=== PATIENT | female | born 1990 | race Caucasian/White ===

== ENCOUNTER 2018-09-28 09:24 | Emergency (ER) | payer BC ==
--- OUTSIDE RECORDS SUMMARY | 2018-09-28 09:29 | XMS REPORT | Continuity of Care Document ---
:1990 External Reference #:[id number] Author Name Yisel Moise Care Team Providers Name Role Phone Santos Parada M.D. Primary Care Physician Unavailable Payers Type Date Identification Numbers Payment Provider Subscriber Effective: Policy Number: [id number] Anthony Harvey 2014 Medicaid Expires: 2017 PayID: [id number] [address] [place] [address] Expires: 2014 Policy Number: Medicaid/[employer] Krishna Harvey [id number] Group Name: 1 1 [address] PayID: [id number] [place] [address] Policy Number: [id number] Jonathan BC Krishna Harvey Group Name: Bernard DOWLING 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 Cigarette Use Negative For current cigarette smoker ETOH Use Negative For Currently consumes alcohol Recreational Drug Use Denies Drug Use Tobacco Use Start: Unknown Patient is a current smoker, smokes every day Smoking Status Reviewed: 03/18/18 Patient is a current smoker, smokes every day Enjoy Exercising Enjoys exercising But says her job and kids are exercise Allergies, Adverse Reactions, Alerts Date Description Reaction Status Severity Comments 10/13/2011 Penicillins Active blisters/hives 05/19/2016 Bee Sting Active swelling of the throat and face Medications Medication Date Status Form Strength Qnty SIG Indications Ordering Provider Ergocalciferol 08/27 Active Capsules 59544Ronp 8caps one by mouth M79.10 twice each Huy Mina, week for 4 [employer] SOLUTION ANALYST-C weeks Vitamin B-12 08/27 Active Tablets 2500mcg 90tab 1 by mouth E53.8 Sub s every day for Huy Mina, deficiency [employer]UTION [employer]LYST-[employer] Zoloft 04/26 Active Tablets 50mg 30tab 1 by mouth F43.23 Emilee /2018 s every day Efren, PICK UP Hydroxyzine HCL 04/26 Active Tablets 25mg 30tab take 1 tablet F43.23 s by mouth Shortle, every 6 hours PICK UP as needed for anxiety Ventolin HFA 11/30 Active Aerosol 108(90Bas 8gm 2 puff J06.9 e) inhalation Shortle, mcg/Act every 4 to 6 PICK UP hours as needed Tizanidine HCL 05/08 Active Tablets 2mg 30tab take 1 tablet M54.17 s by mouth Huy Mina, three times [employer] SOLUTION ANALYST-C daily as needed for muscle spasm Apri 02/13 Active Tablets 0.15-30mg 168ta 1 by mouth -mcg bs every day Huy Mina, [employer]UTION ANALYST-C Lexapro 03/18 Hx Tablets 10mg 30tab 1/2 tab by F43.23 s mouth daily Huy Mina, - for one week. [employer] SOLUTION ANALYST-C 04/27 then 1 tab mouth daily Mucinex 11/30 Hx Tablets 600mg 30tab Take 1 tablet J06.9 ER 12HR s by mouth Shortle, - every 12 PICK UP 03/18 hours needed for chest congestion Clarithromycin 11/16 Hx Tablets 500mg 20tab 1 by mouth J01.90 s twice a day Huy Mina, - for sinusitis [employer] SOLUTION ANALYST-C 11/26 Doxycycline 09/11 Hx Capsules 100mg 28cap 1 by mouth N76.0 Hycl s twice a day Huy Mina, - for 14 days [employer] SOLUTION ANALYST-C 09/21 Tessalkaleigh Perles 09/11 Hx Capsules 100mg 45cap take 1 J20.9 Alex s capsule by Shaila - mouth 3 times , 03/18 per day needed for cough Meloxicam 05/08 Hx Tablets 15mg 30tab 1 by mouth M54.17 s daily for Huy Mina, - pain, take [employer] SOLUTION ANALYST-C 03/18 with food Gabapentin 05/08 Hx Capsules 300mg 60cap take one M54.17 s capsule by Huy Mina, - mouth bid For [employer]UTION ANALYST-C 09/11 Nerve Pain Clarithromycin 02/13 Hx Tablets 500mg 20tab 1 by mouth J01.90 s twice a day Huy Mina, - for sinusitis [employer] SOLUTION ANALYST-C 02/23 Proair HFA 02/13 Hx Aerosol 108(90Bas 8.5un inhale two J01.90 e) its puffs by Huy Mina, - mcg/Act mouth every 4 [employer]UTION ANALYST-C 11/16 hours needed for shortness of breath , cough or wheeze Ergocalciferol 02/13 Hx Capsules 24473Mity 8caps 1 by mouth twice weekly Huy Mina, - for one month [employer] SOLUTION ANALYST-C 03/15 05/23 Hx Tablets 14-0.4mg 30tab 1 by mouth Dolores Gray s every day Diya, - [employer] SOLUTION ANALYST-C 02/13 03/24 Hx Tablets 0.8mg 30tab 1 po qd Santos Vitamins Karen Epps M.D. 05/23 Amoxicillin/Clav 10/13 Hx Tablets 875-125mg 20tab 1 po bid for 465.9 anat s 10 days for Huy Mina, Potassium - infection [employer] SOLUTION ANALYST-C 10/13 Apri 10/13 Hx Tablets 0.15-30mg 1mont 1 po qd V25.09 -mcg h Huy Mina, - BUSINESS SOLUTION ANALYST-C 03/24 Ciprofloxacin 02/27 Hx Tablets 500mg 20tab 1 po bid for 465.9 Shawnti HCL s infection Huy Mina, - [employer] SOLUTION ANALYST-C 10/22 Percocet 02/02 Hx Tablets 5-325mg 40For 1-2 tabs po 634.82 ty q6hr prn pain Huy Leopoldo, - BUSINESS SOLUTION ANALYST-C 03/17 Zofran Odt 02/02 Hx Tablets 4mg 20tab disolve one 634.82 Dispers s tab in mouth Huy Mina, - every 6-8 [employer]UTION ANALYST-C 03/17 hours prn nausea And 12/22 Hx Tablets 30tab one vitamin V22.0 [facility] Iron s daily Huy Mina, - BUSINESS SOLUTION ANALYST-C 03/17 Return To Work 12/22 Hx may return to V22.0 work, no Huy Mina, - restrictions [employer] SOLUTION ANALYST-C 03/17 Excuse For Work 11/17 Hx Currently unable to Parada, - work due to M.D. 12/27 medical illness through 12/17/08. Naprosyn 02/28 Hx Tablets 500mg 60tab one pill po 719.43 s bid for pain Huy Mina, - BUSINESS SOLUTION ANALYST-C 03/09 Cock Up Wrist 02/28 Hx 1Spli left wrist 719.43 wnti Splint nt splint Huy Mina, - BUSINESS SOLUTION ANALYST-C 03/09 Zyprexa 11/08 Hx Tablets 5mg 30tab 1 qd Karen Epps M.D. 11/17 Sertraline HCL 08/24 Hx Tablets 100mg 30tab 1 PO qam, 08/18 Karen Solorzano M.D. 03/17 No Work 07/15 Hx seen here [employer]07/15 for Lessinger - acute , M.D. 11/08 problems, needed to be off work through 07/22. ok to return to work 07/23. Sertraline HCL 07/07 Hx Tablets 50mg 45tab 1 08/18 po qd Karen Epps M.D. 08/24 Sertraline 04/06 Hx Tablets 50mg 45tab 1 08/18 qd Karen Epps M.D. 07/07 Benzaclin 07/04 Hx Gel 1%;5 % 25g apply bid 706.1 Madan Michel /2004 after washing aPco, - and drying M.DSuzie 04/06 face. /2006 Air Cast For 07/04 Hx 0 1unit best fit, 719.87 Madan Michel Right Ankle /2004 s Karen Sims M.D. 04/06 Risperdal 03/15 Hx Tablets 0.25mg 30tab 1 po qhs 311 Karen Arreola M.D. 04/06 Prozac 10/22 Hx Capsules 20mg 30cap one qd 311 Karen Arreola M.D. 04/06 Ilotycin 06/05 Hx 1Tube use as Malena Ophthalmic /2002 directed qid Carmen Rios, 04/06 [facility] /2006 Keflex 06/05 Hx Tablets 500mg 20tab one po bid Malena /2002 s for 10 days Carmen Rios, 10/22 [facility].N.P.C[facility] /2003 Garamycin 03/31 Hx 3mg/ml 5ml 2 Drops Every 372.30 Kyra Opthalmic Drops /2002 Hour The [employer] - First Day Fredi, 06/05 Then 2 M.DSuzie /2002 Drops Every Four Hours Hydrocodone-Acet Hx Tablets 5-325mg 1 tablet by Unknown aminophen /0000 mouth every - 4-6 hours as 03/18 needed for /2018 back pain. Medications Administered in Office Medication Date Status Form Strength Qnty SIG Indications Ordering Provider TB,Intradermal Administered Injection Lab and (PPD, Mantoux) 018 Office Services Rocephin Administered Injection Elio Son (Ceftriaxone) 018 Storm, Per 250MG [employer] SOLUTION ANALYST-C TB,Intradermal Administered Injection Santos Parada (PPD, Mantoux) 008 Nelia.DSuzie TB,Intradermal Administered Injection Dolores (PPD, Mantoux) 992 Asia Zhu Immunizations CPT Code Status Date Vaccine Lot # [id number] Given 06/01/2018 Influenza Virus Vaccine, Quadrivalent, 3 Yr > [id number] Quad, Preserv Free 53801 Given 06/23/2016 Influenza Virus Vaccine, Quadrivalent, 3 Yr > [id number] Quad, Preserv Free 16606 Given 02/06/2015 Tdap (Adacel) 94380 Given 03/09/2008 Menactra (meningococcal conjugate vaccine) [id number] 91719 Given 03/09/2008 Tdap (Adacel) [id number] 52022 Given 12/16/2001 Hep B Adol- 10 mcg 2 DS 11-15 Yrs (Recombivax)VF 37990 Given 09/01/2001 Hep B Adol- 10 mcg 2 DS 11-15 Yrs (Recombivax)[facility] 73074 Given 02/04/1995 Opv (Poliovirus,Oral) 51133 Given 02/04/1995 MMR (Measles,Mumps,Rubella) 52371 Given 02/04/1995 DPT 21730 Given 07/18/1991 DPT 56470 Given 03/21/1991 Opv (Poliovirus,Oral) 70693 Given 03/21/1991 MMR (Measles,Mumps,Rubella) 30948 Given 03/21/1991 Hib (Hemophilus Influenza B) (Acthib) 24771 Given 08/04/1990 Hib (Hemophilus Influenza B) (Acthib) 63380 Given 04/21/1990 DPT 02621 Given 02/26/1990 Opv (Poliovirus,Oral) 28901 Given 02/26/1990 DPT 98931 Given 1989 Opv (Poliovirus,Oral) 65099 Given 1989 DPT Vital Signs Date Vital Result Comment 08/27/2018 3:56pm Weight 122.00 lb Weight 55.339 kg BP Systolic 90 mmHg BP Diastolic 60 mmHg Heart Rate 76 /min Body Temperature 97.5 F Respiratory Rate 16 /min 06/01/2018 9:50am Weight 120.00 lb Weight 54.432 kg BP Systolic 102 mmHg BP Diastolic 64 mmHg Heart Rate 66 /min Body Temperature 97.9 F Respiratory Rate 16 /min O2 % BldC Oximetry 97 % 04/26/2018 2:54pm Weight 119.00 lb Weight 53.978 kg BP Systolic 118 mmHg BP Diastolic 68 mmHg Heart Rate 66 /min Body Temperature 98.2 F Respiratory Rate 16 /min Height 62.5 inches 5'2.50" BMI (Body Mass Index) 21.4 kg/m2 O2 % BldC Oximetry 98 % 04/12/2018 11:19am Weight 116.00 lb Weight 52.618 kg BP Systolic 98 mmHg BP Diastolic 62 mmHg Heart Rate 68 /min Body Temperature 97.8 F Respiratory Rate 16 /min O2 % BldC Oximetry 98 % 03/18/2018 10:02am Weight 114.00 lb Weight 51.710 kg BP Systolic 94 mmHg BP Diastolic 62 mmHg Heart Rate 64 /min Body Temperature 98.0 F Respiratory Rate 16 /min Height 62.5 inches 5'2.50" BMI (Body Mass Index) 20.5 kg/m2 O2 % BldC Oximetry 100 % 11/30/2017 4:30pm Weight 120.00 lb Weight 54.432 kg BP Systolic 108 mmHg BP Diastolic 62 mmHg Heart Rate 72 /min Body Temperature 98.1 F Respiratory Rate 20 /min O2 % BldC Oximetry 98 % 11/16/2017 11:22am Weight 118.00 lb Weight 53.525 kg BP Systolic 90 mmHg BP Diastolic 58 mmHg Heart Rate 68 /min Body Temperature 97.9 F Respiratory Rate 16 /min O2 % BldC Oximetry 99 % 09/11/2017 2:49pm Weight 119.00 lb Weight 53.978 kg BP Systolic 90 mmHg BP Diastolic 62 mmHg Heart Rate 88 /min Body Temperature 97.3 F Respiratory Rate 16 /min O2 % BldC Oximetry 98 % 09/11/2016 5:07pm Weight 120.00 lb Weight 54.432 kg BP Systolic 90 mmHg BP Diastolic 60 mmHg Heart Rate 96 /min Body Temperature 98.2 F Respiratory Rate 16 /min O2 % BldC Oximetry 99 % 06/23/2016 3:12pm Weight 120.00 lb Weight 54.432 kg BP Systolic 94 mmHg BP Diastolic 60 mmHg Heart Rate 60 /min Body Temperature 98.9 F Respiratory Rate 14 /min 05/19/2016 2:45pm Weight 122.00 lb Weight 55.339 kg BP Systolic 90 mmHg BP Diastolic 63 mmHg Heart Rate 60 /min 05/08/2016 11:18am Weight 123.00 lb Weight 55.793 kg BP Systolic 110 mmHg BP Diastolic 80 mmHg Heart Rate 76 /min Body Temperature 98.9 F Respiratory Rate 16 /min 02/14/2016 2:15pm Weight 120.00 lb Weight 54.432 kg BP Systolic 108 mmHg BP Diastolic 68 mmHg Heart Rate 75 /min Body Temperature 99.7 F Height 62 inches 5'2" BMI (Body Mass Index) 21.9 kg/m2 O2 % BldC Oximetry 98 % 05/23/2014 8:53am Weight 114.00 lb Weight 51.710 kg BP Systolic 106 mmHg BP Diastolic 68 mmHg Heart Rate 88 /min Height 62.5 inches 5'2.50" BMI (Body Mass Index) 20.5 kg/m2 04/06/2012 3:52pm Weight 111.00 lb Weight 50.350 kg BP Systolic 90 mmHg BP Diastolic 50 mmHg Heart Rate 76 /min 03/24/2012 4:02pm Weight 112.00 lb Weight 50.803 kg BP Systolic 90 mmHg BP Diastolic 60 mmHg Heart Rate 88 /min 10/13/2011 10:53am Weight 123.00 lb Weight 55.793 kg BP Systolic 90 mmHg BP Diastolic 58 mmHg Heart Rate 76 /min Body Temperature 97.9 F O2 % BldC Oximetry 98 % AT Room Air 02/07/2009 2:25pm Weight 124.00 lb Weight 56.246 kg BP Systolic 105 mmHg BP Diastolic 62 mmHg Heart Rate 72 /min Body Temperature 97.7 F Respiratory Rate 18 /min 02/02/2009 2:30pm Weight 120.00 lb Weight 54.432 kg BP Systolic 80 mmHg BP Diastolic 50 mmHg Heart Rate 84 /min 01/17/2009 12:07pm Weight 122.00 lb Weight 55.339 kg BP Systolic 84 mmHg BP Diastolic 50 mmHg Heart Rate 88 /min Body Temperature 97.0 F 12/27/2008 10:50am Weight 123.00 lb Weight 55.793 kg BP Systolic 90 mmHg BP Diastolic 60 mmHg Heart Rate 76 /min Body Temperature 98.0 F 12/22/2008 4:05pm Weight 122.00 lb Weight 55.339 kg BP Systolic 110 mmHg BP Diastolic 70 mmHg Heart Rate 88 /min Body Temperature 98.5 F 12/05/2008 12:02pm Weight 120.00 lb Weight 54.432 kg BP Systolic 108 mmHg BP Diastolic 60 mmHg Heart Rate 68 /min 11/17/2008 11:17am Weight 122.00 lb Weight 55.339 kg BP Systolic 82 mmHg BP Diastolic 58 mmHg Heart Rate 68 /min 03/09/2008 2:26pm Weight 115.00 lb Weight 52.164 kg BP Systolic 100 mmHg BP Diastolic 60 mmHg Heart Rate 60 /min Weight Percentile 03/01/2008 11:38am Weight 115.00 lb Weight 52.164 kg BP Systolic 100 mmHg BP Diastolic 50 mmHg Heart Rate 64 /min Weight Percentile 02/29/2008 11:36am Weight 116.00 lb Weight 52.618 kg BP Systolic 108 mmHg BP Diastolic 68 mmHg Heart Rate 80 /min Body Temperature 98.1 F Weight Percentile 12/21/2007 4:04pm Weight 116.00 lb Weight 52.618 kg BP Systolic 94 mmHg BP Diastolic 60 mmHg Heart Rate 76 /min Weight Percentile 3311/09/2007 4:01pm Weight 121.00 lb Weight 54.886 kg BP Systolic 88 mmHg BP Diastolic 58 mmHg Heart Rate 80 /min Weight Percentile 4407/15/2007 2:36pm Weight 114.50 lb Weight 51.937 kg BP Systolic 80 mmHg BP Diastolic 50 mmHg Heart Rate 76 /min Weight Percentile 3207/07/2007 3:35pm Weight 117.00 lb Weight 53.071 kg BP Systolic 90 mmHg BP Diastolic 50 mmHg Heart Rate 84 /min Weight Percentile 3704/06/2007 1:17pm Weight 116.00 lb Weight 52.618 kg BP Systolic 110 mmHg BP Diastolic 60 mmHg Heart Rate 80 /min Respiratory Rate 18 /min Weight Percentile 3607/04/2005 1:25pm Weight 112.00 lb Weight 50.803 kg BP Systolic 110 mmHg BP Diastolic 70 mmHg Weight Percentile 3804/25/2005 5:20pm Weight 113.00 lb Weight 51.257 kg BP Systolic 100 mmHg BP Diastolic 60 mmHg Body Temperature 97.8 F Weight Percentile 4211/01/2004 4:12pm Weight 114.00 lb Weight 51.710 kg BP Systolic 90 mmHg BP Diastolic 60 mmHg Body Temperature 97.2 F Respiratory Rate 18 /min Weight Percentile 4810/09/2004 10:05am Weight 116.00 lb Weight 52.618 kg BP Systolic 110 mmHg BP Diastolic 60 mmHg Weight Percentile 5303/27/2004 9:28am Weight 112.00 lb Weight 50.803 kg BP Systolic 110 mmHg BP Diastolic 70 mmHg Weight Percentile 5103/15/2004 8:04am Weight 112.00 lb Weight 50.803 kg BP Systolic 86 mmHg BP Diastolic 51 mmHg Heart Rate 93 /min Weight Percentile 51st 10/23/2003 9:34am Weight 104.00 lb Weight 47.174 kg Height 61 inches Height Percentile 20 % Weight Percentile 40th BMI (Body Mass Index) 19.6 kg/m2 06/08/2003 9:07am Weight 105.00 lb Weight 47.628 kg Body Temperature 97.0 F Weight Percentile 48th 06/05/2003 2:59pm Weight 105.00 lb Weight 47.628 kg Body Temperature 99.3 F Weight Percentile 48th 02/21/2003 3:30pm Weight 103.00 lb Weight 46.721 kg BP Systolic 106 mmHg BP Diastolic 60 mmHg Heart Rate 76 /min Height 61.25 inches Height Percentile 34 % Weight Percentile 48th BMI (Body Mass Index) 19.3 kg/m2 Right Visual Acuity Distance 20/25 Left Visual Acuity Distance 20/25 03/31/2002 3:51pm Weight 91.00 lb Body Temperature 98.5 F Weight Percentile 47th Right Visual Acuity Distance 20/25 Left Visual Acuity Distance 20/40 01/11/2002 4:59pm Weight 87.50 lb Weight Percentile 39th 11/29/2001 4:28pm Weight 87.00 lb BP Systolic 92 mmHg BP Diastolic 60 mmHg Height 58 inches Height Percentile 31 % Weight Percentile 38th BMI (Body Mass Index) 18.2 kg/m2 Results Test Date Facility Test Result H/L Range Note CBC Auto Diff 06/01/2018 [facility] White Blood 5.5 10^3/uL N 3.5-10.8 [phone] Count Red Blood Count 4.69 10^6/uL N 4.00-5.40 Hemoglobin 13.8 g/dL N 12.0-16.0 Hematocrit 41 % N 35-47 Mean Corpuscular Volume 88 fL N 80-97 Mean Corpuscular Hemoglobin 29 pg N 27-31 Mean Corpuscular HGB Conc 33 g/dL N 31-36 Red Cell Distribution Width 14 % N 10.5-15 Platelet Count 304 10^3/uL N 150-450 Mean Platelet Volume 9.1 um3 N 7.4-10.4 Abs Neutrophils 2.0 10^3/uL N 1.5-7.7 Abs Lymphocytes 2.9 10^3/uL N 1.0-4.8 Abs Monocytes 0.4 10^3/uL N 0-0.8 Abs Eosinophils 0.1 10^3/uL N 0-0.6 Abs Basophils 0.1 10^3/uL N 0-0.2 Abs Nucleated RBC 0 10^3/uL Granulocyte % 36.0 % Low 38-83 Lymphocyte % 53.1 % High 25-47 Monocyte % 7.4 % High 0-7 Eosinophil % 2.6 % N 0-6 Basophil % 0.9 % N 0-2 Nucleated Red Blood Cells % 0.1 Laboratory test 06/01/2018 [facility] Vitamin D 27.1 ng/mL N 20-50 1 finding [phone] Total 25(Oh) Vitamin B12 194 pg/mL N 180-914 2 Laboratory test 03/18/2018 [facility] Cytology SEE RESULT 3 finding [phone] BELOW Laboratory test 09/11/2017 [facility] Gardnerella/ Yeas SEE RESULT 4 finding [phone] t: Vaginal Dna BELOW Urine DIP 09/11/2017 [facility] Leukocytes neg Neg (607)- - Urine Nitrites neg Neg Urobilinogen norm Norm Total Protein, Urine neg Neg Urine pH 5 5-6 Urine Blood trace Neg Specific Bond 1.015 1.01-1.02 Urine Ketones neg Neg Urine Bilirubin neg Neg Urine Glucose norm Norm GC/Chlamydia 09/11/2017 [facility] Chlamydia Negative Negative Amplified Rna [phone] trachomatis Rna Neisseria gonorrhoeae (GC) Rna Negative Negative Laboratory test 09/11/2017 [facility] Trichomonas Negative Negative 5 finding [phone] Vaginalis Rna Laboratory test 09/11/2017 [facility] House [facility] HCG DIP Test neg Neg finding (532)- - CBC Auto Diff 05/07/2016 [facility] White Blood 8.0 10^3/uL N 3.5-10.8 [phone] Count Red Blood Count 4.87 10^6/uL N 4.0-5.4 Hemoglobin 13.9 g/dL N 12.0-16.0 Hematocrit 42 % N 35-47 Mean Corpuscular Volume 86 fL N 80-97 Mean Corpuscular Hemoglobin 28 pg N 27-31 Mean Corpuscular HGB Conc 33 g/dL N 31-36 Red Cell Distribution Width 13 % N 10.5-15 Platelet Count 308 10^3/uL N 150-450 Mean Platelet Volume 10 um3 N 7.4-10.4 Abs Neutrophils 3.8 10^3/uL N 1.5-7.7 Abs Lymphocytes 3.5 10^3/uL N 1.0-4.8 Abs Monocytes 0.5 10^3/uL N 0-0.8 Abs Eosinophils 0.1 10^3/uL N 0-0.6 Abs Basophils 0.1 10^3/uL N 0-0.2 Abs Nucleated RBC 0 10^3/uL N Granulocyte % 47.3 % N 38-83 Lymphocyte % 44.5 % N 25-47 Monocyte % 5.9 % N 1-9 Eosinophil % 1.2 % N 0-6 Basophil % 1.1 % N 0-2 Nucleated Red Blood Cells % 0 N Comp Metabolic Panel 05/07/2016 [facility] Sodium 138 mmol/L N 133-145 [phone] Potassium 3.8 mmol/L N 3.5-5.0 Chloride 106 mmol/L N 101-111 Co2 Carbon Dioxide 27 mmol/L N 22-32 Anion Gap 5 mmol/L N 2-11 Glucose 87 mg/dL N 70-100 Blood Urea Nitrogen 22 mg/dL N 6-24 Creatinine 0.92 mg/dL N 0.51-0.95 BUN/Creatinine Ratio 23.9 High 8-20 Calcium 9.5 mg/dL N 8.6-10.3 Total Protein 7.1 g/dL N 6.4-8.9 Albumin 3.9 g/dL N 3.2-5.2 Globulin 3.2 g/dL N 2-4 Albumin/Globulin Ratio 1.2 N 1-3 Total Bilirubin 0.40 mg/dL N 0.2-1.0 Alkaline Phosphatase 34 U/L N 34-104 Alt 7 U/L N 7-52 Ast 11 U/L Low 13-39 Egfr Non- 73.8 N >60 Egfr 94.9 N >60 6 Laboratory test 05/07/2016 [facility] C Reactive < 1.00 N < 5.00 7 finding [phone] Protein mg/L HCG < 0.60 mIU/mL N 8 Urinalysis Profile 05/07/2016 [facility] Urine Color Yellow N [phone] Urine Appearance Clear N Urine Specific Bond 1.025 N 1.010-1.030 Urine pH 5.0 N 5-9 Urine Urobilinogen Negative N Negative Urine Ketones Negative N Negative Urine Protein Negative N Negative Urine Leukocytes Negative N Negative Urine Blood Negative N Negative Urine Nitrite Negative N Negative Urine Bilirubin Negative N Negative Urine Glucose Negative N Negative Laboratory test 02/14/2016 [facility] Cytology SEE RESULT 9 finding [phone] BELOW CBC Auto Diff 02/14/2016 [facility] White Blood 7.9 10^3/uL N 3.5-10 [phone] Count .8 Red Blood Count 4.50 10^6/uL N 4.0-5.4 Hemoglobin 12.8 g/dL N 12.0-16.0 Hematocrit 38 % N 35-47 Mean Corpuscular Volume 85 fL N 80-97 Mean Corpuscular Hemoglobin 29 pg N 27-31 Mean Corpuscular HGB Conc 34 g/dL N 31-36 Red Cell Distribution Width 13 % N 10.5-15 Platelet Count 327 10^3/uL N 150-450 Mean Platelet Volume 9 um3 N 7.4-10.4 Abs Neutrophils 4.0 10^3/uL N 1.5-7.7 Abs Lymphocytes 3.3 10^3/uL N 1.0-4.8 Abs Monocytes 0.5 10^3/uL N 0-0.8 Abs Eosinophils 0.1 10^3/uL N 0-0.6 Abs Basophils 0 10^3/uL N 0-0.2 Abs Nucleated RBC 0 10^3/uL N Granulocyte % 50.2 % N 38-83 Lymphocyte % 42.2 % N 25-47 Monocyte % 5.9 % N 1-9 Eosinophil % 1.3 % N 0-6 Basophil % 0.4 % N 0-2 Nucleated Red Blood Cells % 0 N Lipid Profile 02/14/2016 [facility] Triglycerides 57 mg/dL N 10 (Trig/Chol/HDL) [phone] Cholesterol 156 mg/dL N 11 HDL Cholesterol 41.1 mg/dL N 12 LDL Cholesterol 104 mg/dL N 13 Laboratory test 02/14/2016 [facility] TSH (Thyroid 1.70 ?IU/mL N 0.34-5.60 14 finding [phone] Stim Horm) Vitamin D Total 25(Oh) 26.6 ng/mL Low 30-50 15 Laboratory test 02/07/2016 [facility] Rapid Strep Negative N Negative 16 finding [phone] Molecular Laboratory test 05/23/2014 [facility] HCG DIP Test POS Neg finding (607)- - Laboratory test 03/24/2012 [facility] HCG DIP Test POS Neg finding (607)- - Laboratory test 10/13/2011 [facility] HCG DIP Test NEG Neg finding (607)- - Cytology 02/13/2009 [facility] Cytology 17 [phone] ---- <SEE NOTE> CBC With Manual 02/02/2009 [facility] White Blood 6.2 CUMM 4.8-10.8 Diff [phone] Count Red Cell Count 3.47 CUMM Low 4.2-5.4 Hemoglobin 10.7 g/dL Low 12.0-16.0 Hematocrit 31 % Low 35-47 Mean Corpuscular Volume 90 um3 79-97 Mean Corpuscular Hemoglob 31 pg 27-31 Mean Corpuscular HGB Cone 35 g/dL 32-36 Redcell Distribution WDTH 13 % 10.5-15 Platelet Count 282 CUMM 150-450 Mean Platelet Volume 8.5 um3 7.4-10.4 Polysegmented Neutrophil 45 % 38-83 Lymphocyte 49 % High 25-47 Monocyte 5 % 0-13 Eosenophil 1 % 0-6 Absolute Neutrophil Count 2.7 Hypochromasia SLIGHT Ovalocytes FEW Laboratory test 02/02/2009 [facility] House Lab Hemoglobin 10.3 finding (607)- - CBC With 01/27/2009 [facility] White Blood Count 6.1 CUMM 4.8-10. Electronic Diff [phone] Red Cell Count 3.14 CUMM Low 4.2-5.4 Hemoglobin 9.7 g/dL Low 12.0-16.0 Hematocrit 27 % Low 35-47 Mean Corpuscular Volume 87 um3 79-97 Mean Corpuscular Hemoglob 31 pg 27-31 Mean Corpuscular HGB Cone 36 g/dL 32-36 Redcell Distribution WDTH 12 % 10.5-15 Platelet Count 197 CUMM 150-450 Mean Platelet Volume 8.3 um3 7.4-10.4 Gran % 67.4 % 38-83 Lymph % 25.7 % 25-47 Mononuclear % 5.9 % 1-9 Eosinophil % 0.7 % 0-6 Basophil % 0.3 % 0-2 Abs Lymphs 1.6 1.0-4.8 Abs Mononuclear 0.4 0-0.8 Absolute Neutrophil Count 4.1 1.5-7.7 Abs Eosinophils 0 0-0.6 Abs Basophils 0 0-0.2 18 Hemoglobin/Hematacrit 01/27/2009 [facility] Hemoglobin 10.4 Low 12.0-16.0 [phone] g/dL Hematocrit 29 % Low 35-47 Laboratory test 01/26/2009 [facility] Urine Culture NG 19 finding [phone] Sensitivi Toxic Shock 01/26/2009 [facility] Patient Blood A POSITIVE Evaluation [phone] Type Antibody Screen NEGATIVE Urinalysis W/Microscopic 01/26/2009 [facility] Ua Color YELLOW [phone] Appearance-Urine CLOUDY Specific Bond-Ur 1.013 1.010-1.030 Esterase-Urine 3+ Abnormal Negative Nitrite NEGATIVE Negative Gejvdccxtiwl-Us-VOT NEGATIVE Negative Protein-Urine 1+ Abnormal Negative PH-Urine 7.5 5-9 Blood-Urine 3+ Abnormal Negative Ketones-Urine NEGATIVE Negative Bilirubin-Ur NEGATIVE Negative Glucose-Urine NEGATIVE Negative WBC-Urine 10-15 Abnormal 0-5 RBC-Urine 5-10 Abnormal 0-2 Epith Cells-Ur MANY Bacteria-Urine 2+ Urinalysis Stat 01/26/2009 [facility] Ua Color YELLOW [phone] Appearance-Urine CLOUDY Specific Bond-Ur 1.013 1.010-1.030 Esterase-Urine 3+ Abnormal Negative Nitrite NEGATIVE Negative Epsqnxlicydf-Rn-ANP NEGATIVE Negative Protein-Urine 1+ Abnormal Negative PH-Urine 7.5 5-9 Blood-Urine 3+ Abnormal Negative Ketones-Urine NEGATIVE Negative Bilirubin-Ur NEGATIVE Negative Glucose-Urine NEGATIVE Negative CBC With Manual 01/26/2009 [facility] White Blood 8.9 CUMM 4.8-10.8 Diff Stat [phone] Count Red Cell Count 4.46 CUMM 4.2-5.4 Hemoglobin 13.6 g/dL 12.0-16.0 Hematocrit 39 % 35-47 Mean Corpuscular Volume 88 um3 79-97 Mean Corpuscular Hemoglob 31 pg 27-31 Mean Corpuscular HGB Cone 35 g/dL 32-36 Redcell Distribution WDTH 12 % 10.5-15 Platelet Count 276 CUMM 150-450 Mean Platelet Volume 8.5 um3 7.4-10.4 Polysegmented Neutrophil 69 % 38-83 Lymphocyte 22 % Low 25-47 Monocyte 8 % 0-13 Atypical Lymph 1 % 0-6 Absolute Neutrophil Count 6.1 Anisocytosis SLIGHT Laboratory 01/26/2009 [facility] [address].0 High 0-5 20 test finding [phone] Quantitative MIU/ML CMP Stat 01/26/2009 [facility] Sodium 134 mmol/L Low 135-145 [phone] Potassium 3.6 mmol/L 3.5-5.0 Chloride 103 mmol/L 101-111 Co2 (Carbon Dioxide) 26.0 mmol/L 22-32 Anion Gap 5.0 mmol/L 2-11 21 Glucose 64 mg/dL Low 70-100 22 BUN 12 mg/dL 6-24 Creatinine 0.70 mg/dL 0.50-1.40 One Over Creatinine 1.40 BUN/Creatinine Ratio 17.1 8-20 Calcium 9.3 mg/dL 8.1-9.9 23 Total Protein 6.3 GM/DL 6.2-8.1 Albumin 3.9 GM/DL 3.6-5.4 Globulin 2.4 GM/DL 2-4 Albumin/Globulin Ratio 1.6 1-3 Bilirubin Total 0.9 mg/dL 0.4-1.5 24 Alkaline Phosphatase 43 U/L 40-122 Alt (SGPT) 12 U/L Low 14-54 Ast (Sgot) 17 U/L 12-42 GC/Chlamydia Dna 01/26/2009 [facility] GC By Aptima NEGATIVE Negative 25 Probe [phone] CHL By Aptima NEGATIVE Negative 26 Wet Prep 01/26/2009 [facility] Wet Prep N^NONE SEEN^ WPCL 27 [phone] <SEE NOTE> Urinalysis 12/23/2008 [facility] Ua Color YELLOW W/Microscopic [phone] Appearance-Urine CLEAR Specific Bond-Ur 1.016 1.010-1.030 Esterase-Urine NEGATIVE Negative Nitrite NEGATIVE Negative Rgtbbivreyjy-Jm-UDA NEGATIVE Negative Protein-Urine NEGATIVE Negative PH-Urine 6.5 5-9 Blood-Urine NEGATIVE Negative Ketones-Urine NEGATIVE Negative Bilirubin-Ur NEGATIVE Negative Glucose-Urine NEGATIVE Negative WBC-Urine 0-2 0-5 RBC-Urine 0-2 0-2 Mucus Urine SMALL Epith Cells-Ur FEW CBC With 12/23/2008 [facility] White Blood 11.0 CUMM High 4.8-10.8 Electronic Diff [phone] Count Stat Red Cell Count 4.46 CUMM 4.2-5.4 Hemoglobin 13.7 g/dL 12.0-16.0 Hematocrit 40 % 35-47 Mean Corpuscular Volume 90 um3 79-97 Mean Corpuscular Hemoglob 31 pg 27-31 Mean Corpuscular HGB Cone 34 g/dL 32-36 Redcell Distribution WDTH 12 % 10.5-15 Platelet Count 332 CUMM 150-450 Mean Platelet Volume 8.1 um3 7.4-10.4 Gran % 58.5 % 38-83 Lymph % 33.5 % 25-47 Mononuclear % 6.7 % 1-9 Eosinophil % 0.7 % 0-6 Basophil % 0.6 % 0-2 Abs Lymphs 3.7 1.0-4.8 Abs Mononuclear 0.7 0-0.8 Absolute Neutrophil Count 6.4 1.5-7.7 Abs Eosinophils 0.1 0-0.6 Abs Basophils 0.1 0-0.2 CMP Stat 12/23/2008 [facility] Sodium 137 mmol/L 135-145 [phone] Potassium 3.4 mmol/L Low 3.5-5.0 Chloride 105 mmol/L 101-111 Co2 (Carbon Dioxide) 26.0 mmol/L 22-32 Anion Gap 6.0 mmol/L 2-11 28 Glucose 86 mg/dL 70-100 29 BUN 16 mg/dL 6-24 Creatinine 0.70 mg/dL 0.50-1.40 One Over Creatinine 1.40 BUN/Creatinine Ratio 22.9 High 8-20 Calcium 9.5 mg/dL 8.1-9.9 30 Total Protein 6.5 GM/DL 6.2-8.1 Albumin 3.7 GM/DL 3.6-5.4 Globulin 2.8 GM/DL 2-4 Albumin/Globulin Ratio 1.3 1-3 Bilirubin Total 0.7 mg/dL 0.4-1.5 Alkaline Phosphatase 48 U/L 40-122 Alt (SGPT) 11 U/L Low 14-54 Ast (Sgot) 16 U/L 12-42 Laboratory test 12/23/2008 [facility] BHCG Quantitative 7404.0 High 0-5 31 finding [phone] MIU/ML Urinalysis 12/20/2008 [facility] Ua Color YELLOW W/Microscopic [phone] Appearance-Urine CLEAR Specific Bond-Ur 1.009 Low 1.010-1.030 Esterase-Urine NEGATIVE Negative Nitrite NEGATIVE Negative Pwbsdxoiquga-Vu-QFI NEGATIVE Negative Protein-Urine NEGATIVE Negative PH-Urine 7.0 5-9 Blood-Urine NEGATIVE Negative Ketones-Urine NEGATIVE Negative Bilirubin-Ur NEGATIVE Negative Glucose-Urine NEGATIVE Negative RBC-Urine NONE SEEN 0-2 Epith Cells-Ur FEW CBC With 12/20/2008 [facility] White Blood 6.1 CUMM 4.8-10.8 Electronic Diff [phone] Count Stat Red Cell Count 4.34 CUMM 4.2-5.4 Hemoglobin 13.5 g/dL 12.0-16.0 Hematocrit 39 % 35-47 Mean Corpuscular Volume 90 um3 79-97 Mean Corpuscular Hemoglob 31 pg 27-31 Mean Corpuscular HGB Cone 35 g/dL 32-36 Redcell Distribution WDTH 13 % 10.5-15 Platelet Count 274 CUMM 150-450 Mean Platelet Volume 8.6 um3 7.4-10.4 Gran % 52.9 % 38-83 Lymph % 37.0 % 25-47 Mononuclear % 9.0 % 1-9 Eosinophil % 0.6 % 0-6 Basophil % 0.5 % 0-2 Abs Lymphs 2.3 1.0-4.8 Abs Mononuclear 0.5 0-0.8 Absolute Neutrophil Count 3.2 1.5-7.7 Abs Eosinophils 0 0-0.6 Abs Basophils 0 0-0.2 Type And Screen 12/20/2008 [facility] Patient Blood A POSITIVE [phone] Type Antibody Screen NEGATIVE Basic Metabolic 12/20/2008 [facility] Sodium 135 mmol /L 135-145 Panel Stat [phone] Potassium 3.7 mmol/L 3.5-5.0 Chloride 104 mmol/L 101-111 Co2 (Carbon Dioxide) 27.0 mmol/L 22-32 Anion Gap 4.0 mmol/L 2-11 32 Glucose 66 mg/dL Low 70-100 33 BUN 18 mg/dL 6-24 Creatinine 0.63 mg/dL 0.50-1.40 One Over Creatinine 1.50 BUN/Creatinine Ratio 28.6 High 8-20 Calcium 9.3 mg/dL 8.1-9.9 34 Laboratory test 12/20/2008 [facility] 3312.0 High 0-5 35 finding [phone] Quantitative MIU/ML CBC With 11/11/2008 [facility] White Blood 9.4 CUMM 4.8-10. Electronic Diff [phone] Count 8 Stat Red Cell Count 4.74 CUMM 4.2-5.4 Hemoglobin 14.4 g/dL 12.0-16.0 Hematocrit 42 % 35-47 Mean Corpuscular Volume 89 um3 79-97 Mean Corpuscular Hemoglob 31 pg 27-31 Mean Corpuscular HGB Cone 34 g/dL 32-36 Redcell Distribution WDTH 13 % 10.5-15 Platelet Count 337 CUMM 150-450 Mean Platelet Volume 8.2 um3 7.4-10.4 Gran % 65.6 % 38-83 Lymph % 27.3 % 25-47 Mononuclear % 6.1 % 1-9 Eosinophil % 0.5 % 0-6 Basophil % 0.5 % 0-2 Abs Lymphs 2.6 1.0-4.8 Abs Mononuclear 0.6 0-0.8 Absolute Neutrophil Count 6.2 1.5-7.7 Abs Eosinophils 0 0-0.6 Abs Basophils 0 0-0.2 HCG Qualitative 11/11/2008 [facility] Serum Qual NEGATIVE Negative 36 Stat [phone] HCG CMP Stat 11/11/2008 [facility] Sodium 138 mmol/L 135-145 [phone] Potassium 4.3 mmol/L 3.5-5.0 Chloride 107 mmol/L 101-111 Co2 (Carbon Dioxide) 26.0 mmol/L 22-32 Anion Gap 5.0 mmol/L 2-11 37 Glucose 97 mg/dL 70-100 38 BUN 16 mg/dL 6-24 Creatinine 0.80 mg/dL 0.50-1.40 One Over Creatinine 1.20 BUN/Creatinine Ratio 20.0 8-20 Calcium 9.4 mg/dL 8.1-9.9 39 Total Protein 7.2 GM/DL 6.2-8.1 Albumin 4.0 GM/DL 3.6-5.4 Globulin 3.2 GM/DL 2-4 Albumin/Globulin Ratio 1.3 1-3 Bilirubin Total 0.9 mg/dL 0.4-1.5 Alkaline Phosphatase 61 U/L 40-122 Alt (SGPT) 11 U/L Low 14-54 Ast (Sgot) 18 U/L 12-42 Laboratory test 11/11/2008 [facility] Acetaminophen < 10 Low 10-30 40 finding [phone] Stat g/mL Alcohol Stat < 10.0 mg/dL None Detected 41 Salicylate Stat < 4.0 mg/dL Less Than 30 42 Thyroid Panel 11/11/2008 [facility] Free Thyroxine 0.91 NG/ML 0.61-1.24 43 [phone] Thyroxine 6.6 g/dL 5-12 TSH 0.80 MIU/ML 0.34-5.60 DS3 11/11/2008 [facility] Amphetamines Urine NONE DETECTED None Detect [phone] Screen Barbituates Urine Screen NONE DETECTED None Detect Benzodiazepine Ur Screen NONE DETECTED None Detect Cannabinoid Urine Screen NONE DETECTED None Detect Cocaine Metabolites Urine NONE DETECTED None Detect Opiates Urine Screen NONE DETECTED None Detect PCP Urine Screen NONE DETECTED None Detect 44 CMP Stat 11/11/2008 [facility] Sodium 136 mmol/L 135-145 [phone] Potassium 3.6 mmol/L 3.5-5.0 Chloride 105 mmol/L 101-111 Co2 (Carbon Dioxide) 24.0 mmol/L 22-32 Anion Gap 7.0 mmol/L 2-11 45 Glucose 92 mg/dL 70-100 46 BUN 21 mg/dL 6-24 Creatinine 0.80 mg/dL 0.50-1.40 One Over Creatinine 1.20 BUN/Creatinine Ratio 26.3 High 8-20 Calcium 9.1 mg/dL 8.1-9.9 47 Total Protein 6.4 GM/DL 6.2-8.1 Albumin 3.8 GM/DL 3.6-5.4 Globulin 2.6 GM/DL 2-4 Albumin/Globulin Ratio 1.5 1-3 Bilirubin Total 0.9 mg/dL 0.4-1.5 Alkaline Phosphatase 60 U/L 40-122 Alt (SGPT) 12 U/L Low 14-54 Ast (Sgot) 23 U/L 12-42 CBC With 11/11/2008 [facility] White Blood 6.6 CUMM 4.8-10.8 Electronic Diff [phone] Count Stat Red Cell Count 4.64 CUMM 4.2-5.4 Hemoglobin 13.9 g/dL 12.0-16.0 Hematocrit 42 % 35-47 Mean Corpuscular Volume 90 um3 79-97 Mean Corpuscular Hemoglob 30 pg 27-31 Mean Corpuscular HGB Cone 34 g/dL 32-36 Redcell Distribution WDTH 13 % 10.5-15 Platelet Count 299 CUMM 150-450 Mean Platelet Volume 8.4 um3 7.4-10.4 Gran % 52.8 % 38-83 Lymph % 38.5 % 25-47 Mononuclear % 7.7 % 1-9 Eosinophil % 0.5 % 0-6 Basophil % 0.5 % 0-2 Abs Lymphs 2.5 1.0-4.8 Abs Mononuclear 0.5 0-0.8 Absolute Neutrophil Count 3.6 1.5-7.7 Abs Eosinophils 0 0-0.6 Abs Basophils 0 0-0.2 HCG Qualitative 11/11/2008 [facility] Serum Qual NEGATIVE Negative 48 Stat [phone] HCG CBC With 07/15/2007 [facility] White Blood 7.6 CUMM 4.8-10.8 Electronic Diff [phone] Count Stat Abs Basophils 0.1 0-0.2 Abs Eosinophils 0.1 0-0.6 Absolute Neutrophil Count 3.9 1.5-7.7 Abs Lymphs 3.1 1.0-4.8 Abs Mononuclear 0.5 0-0.8 Basophil % 0.7 % 0-2 Hematocrit 41 % 35-47 Hemoglobin 13.8 g/dL 12.0-16.0 Eosinophil % 0.7 % 0-6 Gran % 51.9 % 38-83 Lymph % 40.5 % 20-45 Mean Corpuscular HGB Cone 34 g/dL 32-36 Mean Corpuscular Hemoglob 30 pg 27-31 Mean Corpuscular Volume 89 um3 79-97 Mean Platelet Volume 8.6 um3 7.4-10.4 Mononuclear % 6.2 % 1-9 Platelet Count 323 CUMM 150-450 Red Cell Count 4.58 CUMM 4.2-5.4 Redcell Distribution WDTH 13 % 10.5-15 Urinalysis Stat 07/15/2007 [facility] Ua Color YELLOW [phone] Appearance-Urine HAZY Bilirubin-Ur NEGATIVE Negative Blood-Urine NEGATIVE Negative Esterase-Urine NEGATIVE Negative Glucose-Urine NEGATIVE Negative Ketones-Urine NEGATIVE Negative Nitrite NEGATIVE Negative PH-Urine 7.0 5-9 Protein-Urine NEGATIVE Negative Vcvlxskxswla-Tw-DNV NEGATIVE Negative Specific Bond-Ur 1.017 1.010-1.030 DS3 07/15/2007 [facility] Amphetamines Urine NONE DETECTED None Detect [phone] Screen Benzodiazepine Ur Screen NONE DETECTED None Detect Cocaine Metabolites Urine NONE DETECTED None Detect Opiates Urine Screen NONE DETECTED None Detect PCP Urine Screen NONE DETECTED None Detect 49 Cannabinoid Urine Screen NONE DETECTED None Detect Barbituates Urine Screen NONE DETECTED None Detect Laboratory test 07/15/2007 [facility] Acetaminophen < 10 g/mL Low 10-30 50 finding [phone] Alcohol < 10.0 mg/dL None Detected 51 Comp Metabolic 07/15/2007 [facility] One Over Creatinine 1.11 Panel [phone] Anion Gap 5.0 mmol/L 2-11 52 Albumin/Globulin Ratio 1.4 1-3 Albumin 4.2 GM/DL 3.6-5.4 Alkaline Phosphatase 57 U/L 40-122 Alt (SGPT) 13 U/L Low 14-54 Ast (Sgot) 17 U/L 12-42 BUN 19 mg/dL 6-24 Calcium 9.5 mg/dL 8.7-10.2 Chloride 104 mmol/L 101-111 Co2 (Carbon Dioxide) 29.0 mmol/L 22-32 Globulin 3.1 GM/DL 2-4 Glucose 93 mg/dL 70-105 Potassium 4.3 mmol/L 3.5-5.0 Sodium 138 mmol/L 135-145 Bilirubin Total 0.6 mg/dL 0.4-1.5 Total Protein 7.3 GM/DL 6.2-8.1 BUN/Creatinine Ratio 21.1 High 8-20 Creatinine 0.9 mg/dL 0.5-1.4 Laboratory test 07/15/2007 [facility] Salicylate < 4.0 mg/dL Less Than 53 finding [phone] 30 TSH 1.84 MIU/ML 0.34-5.60 HCG Qualitative 07/15/2007 [facility] Serum Qual HCG NEGATIVE Negative 54 Stat [phone] Urine DIP 11/01/2004 [facility] Leukocytes NEG Neg [phone] Urine Nitrites NEG Neg Urine pH 5 5-6 Total Protein, Urine NEG Neg Urine Glucose NORM Norm Urine Ketones 3+ High Neg Urobolinogen NORM Norm Urine Bilirubin NEG Neg Urine Blood NEG Neg Laboratory test finding 02/21/2003 In House Lab Hemoglobin 14.5 [phone] [id number] 2 Normal Range 180 to 914 Indeterminate Range 145 to 180 Deficient Range <145 3 SEE RESULT BELOW Name: KRISHNA HARVEY Vero : [address]: Susana Villar NP Acct: [id number] Unit: [id number] AGE: 27 Location: [facility] Re03/18/18 SEX: F Status: REG REF SPEC: [id number] DIOR: 03/18/18-1103 [facility] DR: Susana Villar PICK UP REQ: [id number] RECD: 03/18/18-0483 STATUS: SOUT _ ORDERED: TP IMAGE ANALYS, HPV 16/18 GENE COMMENTS: [id number] Negative for Intraepithelial lesion or Malignancy A. Ectocervical/Endocervical Specimen Adequacy: Satisfactory of evaluation Transformation zone component identified Patient Information: HPV: Thin Layer Pap Test w/reflex to high risk HPV RNA testing when ASCUS HPV 16/18 Genotype Reflex Actual Specimen Date: 03/18/18 LMP If Unknown: Last Menstrual Period Not Given. Date of Last Specimen: 11/15/15 Signed by and Reported on: ZAY Hallman(ASCP) 1418 This Pap test was evaluated with the assistance of the Mod[employer] Test Imaging System. Due to cytologic findings at the lieutenant/deputy microscope, comprehensive manual rescreening by a Mantel Craftsman may be required. The Pap Smear is a screening test designed to aid in the detection of premalignant and malignant conditions of the uterine cervix. It is not a diagnostic procedure and should not be used as the sole means of detecting cervical cancer. Both false- positive and false- negative reports do occur. Depending on your risk status, a Pap smear should be obtained and evaluated every 1-3 years. END OF REPORT DEPARTMENT OF PATHOLOGY, [address] [place] [address] Maksim Jovel M.D. Director [facility] # [id number] 4 SEE RESULT BELOW Name: HUI HARVEYBROWN Pham : [address]: Elio Mina NP Acct: [id number] Unit: [id number] AGE: 26 Location: [facility] Re09/11/17 SEX: F Status: REG REF SPEC: [id number] DIOR: 09/11/17-[address]: Elio Mina NP REQ: [id number] RECD: 09/11/17 STATUS: COMP _ SOURCE: VAGINAL SPDESC: ORDERED: Aditi Kwon DNA COMMENTS: [id number] Procedure Result Reported Site Gardnerella/Yeast: Vaginal DNA Final 09/12/17- 1343 ML Organism 1 POSITIVE GARDNERELLA Organism 2 Negative Jessika The presence of G. vaginalis, although suggestive, is not diagnostic for bacterial vaginosis. Results should be interpreted in conjuction with other clinical and laboratory data available. Women with vaginal discharge should be evaluated for risk factors of cervicitis and pelvic inflammatory disease, toxic shock syndrome (S.aureus), and if present, evaluated for organisms not included in this assay such as N. gonorrhoeae, C. trachomatis, Mobiluncus, Mycoplasma and/or Prevotella. Mixed infections may occur. The performance of this test on patient specimens collected during or immediately after antimicrobial therapy is unknown. The presence or absence of Jessika species, or G. vaginalis cannot be used as a test for therapeutic success or failure. * ML - MAIN LAB ([facility]) . END OF REPORT * ML=Testing performed at Main Lab DEPARTMENT OF PATHOLOGY, [address] [place] [address] Maksim Jovel M.D. Director [facility] # [id number] 5 [id number] GC/Chlamydia Source?: Endocervical Trichomonas Source: Endocervical 6 Because ethnic data is not always readily available, this report includes an eGFR for both -Americans and non- Americans. The National Kidney Disease Education Program (NKDEP) does not endorse the use of the MDRD equation for patients that are not between the ages of 18 and 70, are , have extremes of body size, muscle mass, or nutritional status, or are non- or non-. According to the National Kidney Foundation, irrespective of diagnosis, the stage of the disease is based on the level of kidney function: Stage Description GFR(mL/min/1.73 m(2)) 1 Kidney damage with normal or decreased GFR 90 2 Kidney damage with mild decrease in GFR 60-89 3 Moderate decrease in GFR 30-59 4 Severe decrease in GFR 15-29 5 Kidney failure <15 (or dialysis) 7 Acute inflammation: >10.00 8 <5.0 Negative 5.0 - 25.0 Indeterminate (Repeat testing recommended after 72 hours) >25.0 Positive Perimenopausal women can display HCG levels of up to 20 mIU/mL 9 SEE RESULT BELOW Name: HUI HARVEYBROWN Pham : [address]: Elio Mina NP Acct: [id number] Unit: [id number] AGE: 25 Location: [facility] Re02/14/16 SEX: F Status: REG REF SPEC: [id number] DIOR: 02/14/16-[address]: Elio Mina NP REQ: [id number] RECD: 02/14/16844 STATUS: SOUT _ ORDERED: IMAGE ANALYSIS COMMENTS: [id number] FINAL DIAGNOSIS Negative for Intraepithelial lesion or Malignancy A. Ectocervical/Endocervical Specimen Adequacy: Satisfactory of evaluation Transformation zone component identified Patient Information: HPV: Thin Layer Pap Test w/reflex to high risk HPV RNA testing when ASCUS Actual Specimen Date: 02/14/16 LMP If Unknown: pt unsure very irregular Previous Abnormal Pap Smears?:Y If Yes, enter Diagnosis: unknown, had follow up Colposcopy. Signed (signature on file) ZAY Shipley (ASCP) 02/14 1352 This Pap test was evaluated with the assistance of the Modusly Test Imaging System. Due to cytologic findings at the lieutenant/deputy microscope, comprehensive manual rescreening by a Mantel Craftsman may be required. The Pap Smear is a screening test designed to aid in the detection of premalignant and malignant conditions of the uterine cervix. It is not a diagnostic procedure and should not be used as the sole means of detecting cervical cancer. Both false- positive and false- negative reports do occur. Depending on your risk status, a Pap smear should be obtained and evaluated every 1-3 years. END OF REPORT * ML=Testing performed at Main Lab DEPARTMENT OF PATHOLOGY, [address] [place] [address] Maksim Jovel M.D. Director [facility] # [id number] 10 Desirable <150 Borderline high 150-199 High 200-499 Very High >500 11 Desirable <200 Borderline high 200-239 High >239 12 Low <40 Desirable: 40-60 High: >60 13 Desirable: <100 mg/dL Near Optimal: 100-129 mg/dL Borderline High: 130-159 mg/dL High: 160-189 mg/dL Very High: >189 mg/dL 14 [facility] [id number] [facility] [id number] 16 Material Flow Engineer: KOTA LOPEZ Due to the increased sensitivity of molecular testing, reflex cultures are no longer performed. 17 ---- RUN DATE: 02/14/09 [facility] NMI LIVE PAGE 1 RUN TIME: 1631 Specimen Inquiry RUN USER: INTERFACE -- Name: KRISHNA HARVEY Status: REG REF Re02/13/09 Age/Sex: 18/F Unit#: [id number] Location: [facility] : [birth year] -- Specimen: [id number] SOUT Spec Date: 02/13/09 [facility] Dr: Sadie neely MD Spec Type: CYTOLOGY Received: 02/14/09 Copies to: Santos Parada MD SOURCE ECTOCERVICAL/ENDOCERVICAL Thin Prep with Reflex HPV Test PATIENT INFORMATION ACTUAL COLLECTION DATE: 02/13/09 ? No POST MENOPAUSAL? No HYSTERECTOMY? No PREVIOUS ABNORMAL PAP SMEARS No PATIENT HISTORY: Last menstrual period post-miscarriage ADEQUACY OF SPECIMEN Satisfactory for evaluation * Transformation zone component identified * DIAGNOSIS NEGATIVE FOR INTRAEPITHELIAL LESION OR MALIGNANCY * This Pap test was evaluated with the assistance of the [employer] Pap Test Imaging System. The Pap Smear is a screening test designed to aid in the detection of premalign ant and malignant conditions of the uterine cervix. It is not a diagnostic procedure a nd should not be used as the sole means of detecting cervical cancer. Both false- positiv e and false-negative reports do occur. Depending on your risk status, a Pap smear vikcie uld be obtained and evaluated every one to three years. Final Interpretation electronically signed by: Harris IRELAND([facility]) 02/14/09 163 1 -- -- DEPARTMENT OF PATHOLOGY, [address] [place] [address] [facility] Permit #[id number] Maksim Jovel M.D. Director Eliezer Simeon M.D. Linux Server Engineer Dir elder -- 18 Anemia 19 FINAL: NO GROWTH DAY 2 (<1,000 CFU/mL) 20 * MALES: < 5.0 MIU/ML NON FEMALES < 5.0 MIU/ML APPROX GESTATIONAL AGE APPROX HCG RANGE 0-1 WEEK < 5.0-50 1-2 WEEKS 50-500 2-3 WEEKS 100-5000 3-4 WEEKS 500-10,000 1-2 MONTHS 10,000-200,000 2-3 MONTHS 15,000-100,000 PLEASE NOTE: The intended use of this assay is the quantitative determination of HCG in human serum or plasma for the early detection of . These assays should not be used to diagnose any condition unrelated to . If an HCG level is inconsistent with, or unsupported by, clinical evidence, results should be confirmed by an alternate HCG method. . 21 Anion gap measurement may be of limited value in the presence of any alkalosis, especially in a combined acid base disorder. . 22 Note change in reference range as of 04/06/08. The change was based on recommendations from the [place] [employer]. 23 Please note change in reference range effective 08 . 24 A metabolite of Naproxen, O-desmethylnaproxen, has been shown to interfere with the Jendrassik-Leslie method for measuring total bilirubin. Samples from patients who have taken Naproxen have shown spurious elevation in total bilirubin levels. 25 . A negative result does not preclude the presence of a C.trachomatis or N.gonorrhoeae infection because results are dependent on adequate specimen collection, absence of inhibitors, and sufficient rRNA to be detected. Test results may be affected by improper specimen collection, improper specimen storage, technical error, or specimen mixup. . 26 . A negative result does not preclude the presence of a C.trachomatis or N.gonorrhoeae infection because results are dependent on adequate specimen collection, absence of inhibitors, and sufficient rRNA to be detected. Test results may be affected by improper specimen collection, improper specimen storage, technical error, or specimen mixup. . 27 N^ABSENT^WPTVAG M^MANY (GREATER THAN 5/HPF)^WPWBC N^ABSENT^WPYEA 28 Anion gap measurement may be of limited value in the presence of any alkalosis, especially in a combined acid base disorder. . 29 Note change in reference range as of 04/06/08. The change was based on recommendations from the [place] [employer]. 30 Please note change in reference range effective 08 . 31 * MALES: < 5.0 MIU/ML NON FEMALES < 5.0 MIU/ML APPROX GESTATIONAL AGE APPROX HCG RANGE 0-1 WEEK < 5.0-50 1-2 WEEKS 50-500 2-3 WEEKS 100-5000 3-4 WEEKS 500-10,000 1-2 MONTHS 10,000-200,000 2-3 MONTHS 15,000-100,000 PLEASE NOTE: The intended use of this assay is the quantitative determination of HCG in human serum or plasma for the early detection of . These assays should not be used to diagnose any condition unrelated to . If an HCG level is inconsistent with, or unsupported by, clinical evidence, results should be confirmed by an alternate HCG method. . 32 Anion gap measurement may be of limited value in the presence of any alkalosis, especially in a combined acid base disorder. . 33 Note change in reference range as of 04/06/08. The change was based on recommendations from the [place] [employer]. 34 Please note change in reference range effective 08 . 35 * MALES: < 5.0 MIU/ML NON FEMALES < 5.0 MIU/ML APPROX GESTATIONAL AGE APPROX HCG RANGE 0-1 WEEK < 5.0-50 1-2 WEEKS 50-500 2-3 WEEKS 100-5000 3-4 WEEKS 500-10,000 1-2 MONTHS 10,000-200,000 2-3 MONTHS 15,000-100,000 PLEASE NOTE: The intended use of this assay is the quantitative determination of HCG in human serum or plasma for the early detection of . These assays should not be used to diagnose any condition unrelated to . If an HCG level is inconsistent with, or unsupported by, clinical evidence, results should be confirmed by an alternate HCG method. . 36 If is still suspected, please repeat test after 48 to 72 hours. . 37 Anion gap measurement may be of limited value in the presence of any alkalosis, especially in a combined acid base disorder. . 38 Note change in reference range as of 04/06/08. The change was based on recommendations from the [employer]. 39 Please note change in reference range effective 08 . 40 TOXIC LEVELS: GREATER THAN 150 MCG/ML @ 4HR POST INGEST GREATER THAN 50 MCG/ML @ 12HR POST INGEST The detection limit for ACETAMINOPHEN is 10.0 mcg/ml . Values less than 10.0 mcg/ml cannot be accurately measured. . 41 The detection limit for ETHANOL is 10.0 mg/dl . Values less than 10.0 mg/dl cannot be accurately measured. . 42 The detection limit for SALICYLATE is 4.0 mg/dl. Values less than 4.0 mg/dl cannot be accurately measured. . 43 PLEASE NOTE NEW REFERENCE RANGES. 44 THE URINE SPECIMEN WAS TESTED AT THE LISTED CUTOFFS: DRUG CLASS TEST LEVEL (NG/ML) AMPHETAMINES 300 BARBITUATES 200 BENZODIAZEPINE METABOLITES 200 COCAINE METABOLITES 300 CANNABINOIDS 25 OPIATES 200 PCP 25 THIS IS A SCREENING PROCEDURE. POSITIVE RESULTS ARE NOT CONFIRMED. SPECIMEN WAS RECEIVED WITHOUT CHAIN OF CUSTODY. RESULTS SHOULD BE USED FOR MEDICAL PURPOSES ONLY. . 45 Anion gap measurement may be of limited value in the presence of any alkalosis, especially in a combined acid base disorder. . 46 Note change in reference range as of 04/06/08. The change was based on recommendations from the [place] [employer]. 47 Please note change in reference range effective 08 . 48 If is still suspected, please repeat test after 48 to 72 hours. . 49 THE URINE SPECIMEN WAS TESTED AT THE LISTED CUTOFFS: DRUG CLASS TEST LEVEL (NG/ML) AMPHETAMINES 300 BARBITUATES 200 BENZODIAZEPINE METABOLITES 200 COCAINE METABOLITES 300 CANNABINOIDS 25 OPIATES 200 PCP 25 THIS IS A SCREENING PROCEDURE. POSITIVE RESULTS ARE NOT CONFIRMED. SPECIMEN WAS RECEIVED WITHOUT CHAIN OF CUSTODY. RESULTS SHOULD BE USED FOR MEDICAL PURPOSES ONLY. . 50 TOXIC LEVELS: GREATER THAN 150 MCG/ML @ 4HR POST INGEST GREATER THAN 50 MCG/ML @ 12HR POST INGEST The detection limit for ACETAMINOPHEN is 10.0 mcg/ml . Values less than 10.0 mcg/ml cannot be accurately measured. . 51 The detection limit for ETHANOL is 10.0 mg/dl . Values less than 10.0 mg/dl cannot be accurately measured. . 52 Anion gap measurement may be of limited value in the presence of any alkalosis, especially in a combined acid base disorder. . 53 The detection limit for SALICYLATE is 4.0 mg/dl. Values less than 4.0 mg/dl cannot be accurately measured. . 54 If is still suspected, please repeat test after 48 to 72 hours. . Procedures Date Code Description Status 09/11/2017 92692 Therapeutic,Prophylactic,Or Diagnostic Inj,SC/Im Specify Completed Drug Encounters Type Date Location Provider Dx Diagnosis Office Visit 08/27/2018 Main Office Elio Mina M79.10 Myalgia, unspecified 4:00p BUSINESS SOLUTION ANALYST-C site E53.8 Deficiency of other specified B group vitamins Office Visit 06/01/2018 9:45a Main Office Emilee Schwartz NP R51 Headache F43.23 Adjustment disorder with mixed anxiety and depressed mood Z23 Encounter for immunization Office Visit 04/26/2018 3:00p Main Office Susana Villar F43.23 Adjustment PICK UP disorder with mixed anxiety and depressed mood Office Visit 04/12/2018 11:15a Main Office Susana Villar F43.23 Adjustment PICK UP disorder with mixed anxiety and depressed mood Office Visit 03/18/2018 10:00a Main Office Susana Villar Z00.00 Encntr for general PICK UP adult medical exam w/o abnormal findings Z12.4 Encounter for screening for malignant neoplasm of cervix F43.23 Adjustment disorder with mixed anxiety and depressed mood I83.93 Asymptomatic varicose veins of bilateral lower extremities Office Visit 11/30/2017 4:30p Main Office Susana J06.9 Acute upper [place], PICK UP respiratory infection, unspecified Office Visit 11/16/2017 11:15a Main Office Elio Son J01.90 Acute sinusitis, Leopoldo, BUSINESS SOLUTION ANALYST-C unspecified Office Visit 09/11/2017 2:45p Main Office Elio Son N76.0 Acute vaginitis Storm, BUSINESS SOLUTION ANALYST-C R10.30 Lower abdominal pain, unspecified M54.5 Low back pain Office Visit 09/11/2016 5:00p Main Office Alex Linton J02.9 Acute pharyngitis, unspecified J20.9 Acute bronchitis, unspecified Office Visit 06/23/2016 3:45p Main Office Elio Son M54.17 Radiculopathy , Storm, BUSINESS SOLUTION ANALYST-C lumbosacral region Z23 Encounter for immunization Office Visit 05/19/2016 2:30p Main Office Chikiwtabitha Son M54.17 Radiculopathy , Storm, BUSINESS SOLUTION ANALYST-C lumbosacral region Z23 Encounter for immunization Office Visit 05/08/2016 10:45a Main Office Jessentkavon Son M54.17 Radiculopathy , Storm, BUSINESS SOLUTION ANALYST-C lumbosacral region R51 Headache Office Visit 02/14/2016 2:15p Main Office Elio Mina, Z00.00 Encntr for general BUSINESS SOLUTION ANALYST-C adult medical exam w/o abnormal findings J01.90 Acute sinusitis, unspecified Office Visit 05/23/2014 9:00a Main Office Dolores Keane, 648.90 Other BUSINESS SOLUTION ANALYST-C Conditions Episode Of Care Unspec Or N/A Office Visit 04/06/2012 3:30p Main Office Santos Parada M.D. 648.90 Other Conditions Episode Of Care Unspec Or N/A Office Visit 03/24/2012 4:00p Main Office Santos Parada M.D. 648.90 Other Conditions Episode Of Care Unspec Or N/A Office Visit 10/13/2011 11:00a Main Office Elio Mina, 465.9 URI Upper BUSINESS SOLUTION ANALYST-C Respiratory Infections Acute Unspec Sites V25.09 Contraceptive Management Other Office Visit 02/07/2009 2:15p Main Office Santos Parada 634.82 Spontaneous M.D. W/ Unspec Complication Complete Office Visit 02/02/2009 2:30p Main Office Elio Son 634.82 Spontaneous Storm, BUSINESS SOLUTION ANALYST-C W/ Unspec Complication Complete Office Visit 01/17/2009 11:45a Main Office Santos Parada 784.0 Headache M.D. 311 Depressive Disorder Not Elsewhere Spec Office Visit 12/27/2008 11:15a Main Office Santos Parada M.D. 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 611.79 Breast Signs & Symptoms Other 307.49 Sleep Disorder Other 311 Depressive Disorder Not Elsewhere Spec Office Visit 11/17/2008 11:30a Main Office Santos Parada M.D. 311 Depressive Disorder Not Elsewhere Spec Office Visit 03/09/2008 2:30p Main Office Santos Parada M.D. 311 Depressive Disorder Not Elsewhere Spec V06.8 Combination Diseases Other Vaccination & Inoculation 354.0 Carpal Tunnel Syndrome V74.1 Screening Examination Pulmonary Tuberculosis Office Visit 03/01/2008 10:45a Main Office Santos Parada M.D. 311 Depressive Disorder Not Elsewhere Spec 354.0 Carpal Tunnel Syndrome Office Visit 02/29/2008 11:00a Main Office Elio Son 719.43 Pain Joint Forearm RYAN Mina-Tracy Office Visit 12/21/2007 3:45p Main Office Santos Parada M.D. 311 Depressive Disorder Not Elsewhere Spec Office Visit 11/09/2007 3:45p Main Office Satnos Parada M.D. 311 Depressive Disorder Not Elsewhere Spec Office Visit 07/15/2007 2:30p Main Office Malena Morales 311 Depressive Disorder Blanca, Not Elsewhere Spec [facility] Office Visit 07/07/2007 3:30p Main Office Santos Parada M.D. 311 Depressive Disorder Not Elsewhere Spec Office Visit 04/06/2007 1:15p Main Office Santos Parada M.D. 311 Depressive Disorder Not Elsewhere Spec Office Visit 07/04/2005 1:45p Main Office Madan Antonio, 719.87 Joint Disorder M.D. Other Spec Ankle & Foot 706.1 Acne Other Office Visit 04/25/2005 4:30p Main Office Dolores Zhu 311 Depressive M.D. Disorder Not Elsewhere Spec Office Visit 11/01/2004 4:30p Main Office Dolores Zhu, 079.89 Viral Infection M.D. Spec Other Office Visit 10/09/2004 9:45a Main Office Dolores Zhu 311 Depressive M.D. Disorder Not Elsewhere Spec Office Visit 03/27/2004 9:30a Main Office Dolores Zhu, 311 Depressive M.D. Disorder Not Elsewhere Spec V20.2 Routine Infant Or Child Health Check Office Visit 03/15/2004 8:00a Main Office Malena Morales 311 Depressive Disorder Blanca, Not Elsewhere Spec [facility] Office Visit 10/23/2003 9:30a Main Office Dolores Zhu, 311 Depressive Disorder M.D. Not Elsewhere Spec Office Visit 06/08/2003 9:00a Main Office Malena Morales 372.30 Conjuctivitis Unspec Blanca, [facility] 692.89 Dermatitis Due To Spec Agents Other 465.9 URI Upper Respiratory Infections Acute Unspec Sites Office Visit 06/05/2003 2:45p Main Office Malena Morales 372.30 Conjuctivitis Unspec Blanca, [facility] 465.9 URI Upper Respiratory Infections Acute Unspec Sites 692.89 Dermatitis Due To Spec Agents Other Office Visit 02/21/2003 3:30p Main Office Dolores Zhu, V20.2 Routine Infant Or M.D. Child Health Check V70.0 Examination General Medical Routine AT Health Care Facility 311 Depressive Disorder Not Elsewhere Spec Office Visit 03/31/2002 3:30p Main Office Kyra Whitley 372.30 Conjuctivitis Unspec Asia Rai Office Visit 01/11/2002 4:00p Main Office Dolores Zhu, 314.01 Attention Deficit M.D. Disorder W/ Hyperactivity 311 Depressive Disorder Not Elsewhere Spec Office Visit 11/29/2001 4:00p Main Office Dolores Zhu 314.01 Attention Deficit M.D. Disorder W/ Hyperactivity Plan of Treatment 08/27/2018 - Elio Mina, [facility]-CM79.10 Myalgia, unspecified siteNew Medication:Ergocalciferol 11599 Unit - one by mouth twice each week for 4 weeksComments:labs reviewed, will correct Vit D deficiency, follow up after this is completedFollow up:1 ehaseB53.8 Deficiency of other specified B group vitaminsNew Medication:Vitamin B-12 2500 mcg - 1 by mouth every day for deficiencyComments:start daily B12 supplement
--- OUTSIDE RECORDS SUMMARY | 2018-09-28 09:29 | XMS REPORT | Continuity of Care Document ---
:1990 External Reference #:[id number] Author Name ARIAS Patrick Address [address] [place] [address] Care Team Providers Name Role Phone Santos Parada M.D. Primary Care Physician Unavailable Payers Type Date Identification Numbers Payment Provider Subscriber Effective: Policy Number: [id number] [facility] Krishna Harvey 2014 Medicaid Expires: 2017 PayID: [id number] [address] [place] [address] Expires: 2014 Policy Number: Medicaid/Computer Science Krishna Thomsonw [id number] Group Name: 1 1 [address] PayID: [id number] [place] [address] Policy Number: [id number] [facility] Krish[facility] Thomsonw Group Name: Bernard [facility] 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 Cigarette Use Negative For current [...] Indications Ordering Provider Ergocalciferol 08/27 Active Capsules 27891Fxbc 8caps one by mouth M79.10 twice each Huy Mina, week for 4 BARBACK-C weeks Vitamin B-12 08/27 Active Tablets 2500mcg 90tab 1 by mouth E53.8 Sub s every day for Huy Mina, deficiency BARBACK-C Zoloft 04/26 Active Tablets 50mg 30tab 1 by mouth F43.23 Emilee /2018 s every day Efren, BLOCK MECHANIC Hydroxyzine HCL 04/26 Active Tablets 25mg 30tab take 1 tablet F43.23 s by mouth Shortle, every 6 hours BLOCK MECHANIC as needed for anxiety Ventolin HFA 11/30 Active Aerosol 108(90Bas 8gm 2 puff J06.9 e) inhalation Shortle, mcg/Act every 4 to 6 BLOCK MECHANIC hours as needed Tizanidine HCL 05/08 Active Tablets 2mg 30tab take 1 tablet M54.17 s by mouth Huy Mina, three times BARBACK-C daily as needed for muscle spasm Apri 02/13 Active Tablets 0.15-30mg 168ta 1 by mouth -mcg bs every day Huy Mina BARBACK-C Lexapro 03/18 Hx Tablets 10mg 30tab 1/2 tab by F43.23 s mouth daily Huy Mina, - for one week. BARBACK-C 04/27 then 1 tab by mouth daily Mucinex 11/30 Hx Tablets 600mg 30tab Take 1 tablet J06.9 ER 12HR s by mouth Shortle, - every 12 BLOCK MECHANIC 03/18 hours needed for chest congestion Clarithromycin 11/16 Hx Tablets 500mg 20tab 1 by mouth J01.90 s twice a day Huy Mina, - for sinusitis BARBACK-C 11/26 Doxycycline 09/11 Hx Capsules 100mg 28cap 1 by mouth N76.0 wnti Hyclate s twice a day Huy Mina, - for 14 days BARBACK-C 09/21 Teto Pugaes 09/11 Hx Capsules 100mg 45cap take 1 J20.9 Alex s capsule by Shaila - mouth 3 times , 03/18 per day needed for cough Meloxicam 05/08 Hx Tablets 15mg 30tab 1 by mouth M54.17 s daily for Huy Mina, - pain, take BARBACK-C 03/18 with food Gabapentin 05/08 Hx Capsules 300mg 60cap take one M54.17 s capsule by Huy Mina, - mouth bid For BARBACK-C 09/11 Nerve Pain Clarithromycin 02/13 Hx Tablets 500mg 20tab 1 by mouth J01.90 s twice a day Huy Mina, - for sinusitis BARBACK-C 02/23 Proair HFA 02/13 Hx Aerosol 108(90Bas 8.5un inhale two J01.90 e) its puffs by Huy Mina, - mcg/Act mouth every 4 BARBACK-C 11/16 hours needed for shortness of breath , cough or wheeze Ergocalciferol 02/13 Hx Capsules 88478Zqix 8caps 1 by mouth twice weekly Huy Mina, - for one month BARBACK-C 03/15 05/23 Hx Tablets 14-0.4mg 30tab 1 by mouth Dolores Gray s every day Diya, - BARBACK-C 02/13 03/24 Hx Tablets 0.8mg 30tab 1 po qd Santos Vitamins Karen Epps M.D. 05/23 Amoxicillin/Clav 10/13 Hx Tablets 875-125mg 20tab 1 po bid for 465.9 Shawnti ulanate s 10 days for Huy Mina, Potassium - infection BARBACK-C 10/13 Apri 10/13 Hx Tablets 0.15-30mg 1mont 1 po qd V25.09 -mcg h Huy Mina, - BARBACK-C 03/24 Ciprofloxacin 10/13 Hx Tablets 500mg 20tab 1 po bid for 465.9 Shawnti HCL s infection Huy Mina, - BARBACK-C 10/22 Percocet 02/02 Hx Tablets 5-325mg 40For 1-2 tabs po 634.82 ty q6hr prn pain Huy Mina, - BARBACK-C 03/17 Zofran Odt 02/02 Hx Tablets 4mg 20tab disolve one 634.82 Dispers s tab in mouth RSuzie Mina, - every 6-8 BARBACK-C 03/17 hours prn nausea And 12/22 Hx Tablets 30tab one vitamin V22.0 Psychiatric Iron s daily Huy Mina, - BARBACK-C 03/17 Return To Work 12/22 Hx may return to V22.0 work, no IsaelSuzie Leopoldo, - restrictions BARBACK-C 03/17 Excuse For Work 11/17 Hx Currently unable to Parada, - work due to M.D. 12/27 illness through 12/17/08. Naprosyn 02/28 Hx Tablets 500mg 60tab one pill po 719.43 s bid for pain Huy Leopoldo, - BARBACK-C 03/09 Cock Up Wrist 02/28 Hx 1Spli left [facility] 719.43 [facility] Huy Mina, - BARBACK-C 03/09 Zyprexa 11/08 Hx Tablets 5mg 30tab 1 qd Karen Epps M.D. 11/17 Sertraline HCL 08/24 Hx Tablets 100mg 30tab 1 PO qam, 08/18 s qKaren Capone M.D. 03/17 No Work 07/15 Hx seen here [employer] /07/15 for Lessinger - acute , M.D. 11/08 problems needed to be off work through 07/22. ok to return to work 07/23. Sertraline HCL 07/07 Hx Tablets 50mg 45tab 1 1/2 po qd Karen Epps M.D. 08/24 Sertraline 04/06 Hx Tablets 50mg 45tab 1 1/2 qd Karen Epps M.D. 07/07 Benzaclin 07/04 Hx Gel 1%;5 % 25g apply bid 706.1 Madan Michel /2004 after washing Paco, - and drying M.DSuzie 04/06 face. Air Cast For 07/04 Hx 0 1unit best fit, 719.87 Madan Michel Right Ankle /2004 s Karen Sims M.D. 04/06 Risperdal 03/15 Hx Tablets 0.25mg 30tab 1 po qhs 311 Dolores Karen Arreola M.D. 04/06 Prozac 10/22 Hx Capsules 20mg 30cap one qd 311 Karen Arreola M.D. 04/06 Ilotycin 06/05 Hx 1Tube use as Malena Ophthalmic directed qid Carmen Rios, 04/06 [facility] /2006 Keflex 06/05 Hx Tablets 500mg 20tab one po bid Malena /2002 s for 10 days Carmen Rios, 10/22 [facility] /2003 Garamycin 03/31 Hx 3mg/ml 5ml 2 Drops Every 372.30 Kyra Opthalmic Drops /2001 Hour [employer] - First Day Fredi, [...] Mantoux) 018 Office Services Rocephin Administered Injection Chikiwroosevelti Huy (Ceftriaxone) 018 Storm, Per 250MG BARBACK-C TB,Intradermal Administered Injection Santos Parada, (PPD, Mantoux) 008 M.D. TB,Intradermal Administered Injection Dolores (PPD, Mantoux) Kai2 Asia Zhu Immunizations CPT Code Status Date Vaccine Lot # 53469 Given 06/01/2018 Influenza Virus Vaccine, Quadrivalent, 3 Yr > [id number] Quad, Preserv Free 50373 Given 06/23/2016 Influenza Virus Vaccine, Quadrivalent, 3 Yr > [id number] Quad, Preserv Free 52233 Given 02/06/2015 Tdap (Adacel) 41480 Given 03/09/2008 Menactra (meningococcal conjugate vaccine) [id number] 77639 Given 03/09/2008 Tdap (Adacel) [id number] 14266 Given 12/16/2001 Hep B Adol- 10 mcg 2 DS 11-15 Yrs (Recombivax)[facility] 21498 Given 09/01/2001 Hep B Adol- 10 mcg 2 DS 11-15 Yrs (Recombivax)[facility] 04207 Given 02/04/1995 Opv (Poliovirus,Oral) 03888 Given 02/04/1995 MMR (Measles,Mumps,Rubella) 93593 Given 02/04/1995 DPT 30330 Given 07/18/1991 DPT 88398 Given 03/21/1991 Opv (Poliovirus,Oral) 09876 Given 03/21/1991 MMR (Measles,Mumps,Rubella) 88782 Given 03/21/1991 Hib (Hemophilus Influenza B) (Acthib) 64033 Given 08/04/1990 Hib (Hemophilus Influenza B) (Acthib) 45411 Given 04/21/1990 DPT 40882 Given 02/26/1990 Opv (Poliovirus,Oral) 05264 Given 02/26/1990 DPT 11963 Given 1989 Opv (Poliovirus,Oral) 51593 Given 1990 DPT Vital Signs Date Vital [...] mmHg BP Diastolic 70 mmHg Weight Percentile 51st 03/15/2004 8:04am Weight 112.00 lb Weight 50.803 kg [...] H/L Range Note CBC Auto Diff 06/01/2018 [facility] White Blood 5.5 10^3/uL N 3.5-10.8 [phone] Count Red Blood Count 4.69 10^6/uL N [...] Blood Cells % 0.1 Laboratory test 06/01/2018 [facility] Vitamin D 27.1 ng/mL N 20-50 1 finding [phone] Total 25(Oh) Vitamin B12 194 pg/mL N 180-914 2 Laboratory test 03/18/2018 [facility] Cytology SEE RESULT 3 finding [phone] BELOW Laboratory test 09/11/2017 [facility] Gardnerella/ Yeas SEE RESULT 4 finding [phone] t: Vaginal Dna BELOW Urine DIP 09/11/2017 In House Lab Leukocytes neg Neg (607)- - Urine Nitrites neg Neg Urobilinogen norm Norm Total Protein, Urine neg Neg Urine pH 5 5-6 Urine Blood trace Neg Specific [place] 1.015 1.01-1.02 Urine Ketones neg Neg Urine Bilirubin neg Neg Urine Glucose norm Norm GC/Chlamydia 09/11/2017 [facility] Chlamydia Negative Negative Amplified Rna [phone] trachomatis Rna Neisseria gonorrhoeae (GC) Rna Negative Negative Laboratory test 09/11/2017 [facility] Trichomonas Negative Negative 5 finding [phone] Vaginalis Rna Laboratory test 09/11/2017 In House Lab HCG DIP Test neg Neg finding (987)- - CBC Auto Diff 05/07/2016 [facility] White Blood 8.0 10^3/uL N 3.5-10.8 [phone] Count Red Blood Count 4.87 10^6/uL N [...] % 0 N Comp Metabolic Panel 05/07/2016 [facility] Sodium 138 mmol/L N 133-145 [phone] Potassium 3.8 mmol/L N 3.5-5.0 Chloride 106 [...] 94.9 N >60 6 Laboratory test 05/07/2016 [facility] C Reactive < 1.00 N < 5.00 7 finding [phone] Protein mg/L HCG < 0.60 mIU/mL N 8 Urinalysis Profile 05/07/2016 [facility] Urine Color Yellow N [phone] Urine Appearance Clear N Urine Specific [place] 1.025 N 1.010-1.030 Urine pH 5.0 N 5-9 Urine Urobilinogen Negative N Negative Urine Ketones Negative N Negative Urine Protein Negative N Negative Urine Leukocytes Negative N Negative Urine Blood Negative N Negative Urine Nitrite Negative N Negative Urine Bilirubin Negative N Negative Urine Glucose Negative N Negative Laboratory test 02/14/2016 [facility] Cytology SEE RESULT 9 finding [phone] BELOW CBC Auto Diff 02/14/2016 [facility] White Blood 7.9 10^3/uL N 3.5-10 [phone] Count .8 Red Blood Count 4.50 10^6/uL [...] Cells % 0 N Lipid Profile 02/14/2016 [facility] Triglycerides 57 mg/dL N 10 (Trig/Chol/HDL) [phone] Cholesterol 156 mg/dL N 11 HDL Cholesterol 41.1 mg/dL N 12 LDL Cholesterol 104 mg/dL N 13 Laboratory test 02/14/2016 [facility] TSH (Thyroid 1.70 ?IU/mL N 0.34-5.60 14 finding [phone] Stim Horm) Vitamin D Total 25(Oh) 26.6 ng/mL Low 30-50 15 Laboratory test 02/07/2016 [facility] Rapid Strep Negative N Negative 16 finding [phone] Molecular Laboratory test 05/23/2014 In House Lab HCG DIP Test POS Neg finding (607)- - Laboratory test 03/24/2012 In House Lab HCG DIP Test POS Neg finding (607)- - Laboratory test 10/13/2011 In House Lab HCG DIP Test NEG Neg finding (607)- - Cytology 02/13/2009 [facility] Cytology 17 [phone] ---- <SEE NOTE> CBC With Manual 02/02/2009 [facility] White Blood 6.2 CUMM 4.8-10.8 Diff [phone] Count Red Cell Count 3.47 CUMM Low [...] 10.3 finding (607)- - CBC With 01/27/2009 [facility] White Blood Count 6.1 CUMM 4.8-10. Electronic Diff [phone] Red Cell Count 3.14 CUMM Low [...] Abs Basophils 0 0-0.2 18 Hemoglobin/Hematacrit 01/27/2009 [facility] Hemoglobin 10.4 Low 12.0-16.0 [phone] g/dL Hematocrit 29 % Low 35-47 Laboratory test 01/26/2009 [facility] Urine Culture NG 19 finding [phone] Sensitivi Toxic Shock 01/26/2009 [facility] Patient Blood A POSITIVE Evaluation [phone] Type Antibody Screen NEGATIVE Urinalysis W/Microscopic 01/26/2009 [facility] Ua Color YELLOW [phone] Appearance-Urine CLOUDY Specific [place]-Ur 1.013 1.010-1.030 Esterase-Urine 3+ Abnormal Negative Nitrite NEGATIVE Negative Zvczvzrmrwmy-Le-FMB NEGATIVE Negative Protein-Urine 1+ Abnormal Negative PH-Urine 7.5 5-9 Blood-Urine 3+ Abnormal Negative Ketones-Urine NEGATIVE Negative Bilirubin-Ur NEGATIVE Negative Glucose-Urine NEGATIVE Negative WBC-Urine 10-15 Abnormal 0-5 RBC-Urine 5-10 Abnormal 0-2 Epith Cells-Ur MANY Bacteria-Urine 2+ Urinalysis Stat 01/26/2009 [facility] Ua Color YELLOW [phone] Appearance-Urine CLOUDY Specific [place]-Ur 1.013 1.010-1.030 Esterase-Urine 3+ Abnormal Negative Nitrite NEGATIVE Negative Skdartommlbp-Ub-INU NEGATIVE Negative Protein-Urine 1+ Abnormal Negative PH-Urine 7.5 5-9 Blood-Urine 3+ Abnormal Negative Ketones-Urine NEGATIVE Negative Bilirubin-Ur NEGATIVE Negative Glucose-Urine NEGATIVE Negative CBC With Manual 01/26/2009 [facility] White Blood 8.9 CUMM 4.8-10.8 Diff Stat [phone] Count Red Cell Count 4.46 CUMM 4.2-5.4 [...] Neutrophil Count 6.1 Anisocytosis SLIGHT Laboratory 01/26/2009 [facility] [address].0 High 0-5 20 test finding [phone] Quantitative MIU/ML CMP Stat 01/26/2009 [facility] Sodium 134 mmol/L Low 135-145 [phone] Potassium 3.6 mmol/L 3.5-5.0 Chloride 103 mmol/L [...] (Sgot) 17 U/L 12-42 GC/Chlamydia Dna 01/26/2009 [facility] GC By Aptima NEGATIVE Negative 25 Probe [phone] CHL By Aptima NEGATIVE Negative 26 Wet Prep 01/26/2009 [facility] Wet Prep N^NONE SEEN^ WPCL 27 [phone] <SEE NOTE> Urinalysis 12/23/2008 [facility] Ua Color YELLOW W/Microscopic [phone] Appearance-Urine CLEAR Specific [place]-Ur 1.016 1.010-1.030 Esterase-Urine NEGATIVE Negative Nitrite NEGATIVE Negative Treunmzirxod-Xc-AXS NEGATIVE Negative Protein-Urine NEGATIVE Negative PH-Urine 6.5 5-9 Blood-Urine NEGATIVE Negative Ketones-Urine NEGATIVE Negative Bilirubin-Ur NEGATIVE Negative Glucose-Urine NEGATIVE Negative WBC-Urine 0-2 0-5 RBC-Urine 0-2 0-2 Mucus Urine SMALL Epith Cells-Ur FEW CBC With 12/23/2008 [facility] White Blood 11.0 CUMM High 4.8-10.8 Electronic Diff [phone] Count Stat Red Cell Count 4.46 CUMM [...] Abs Basophils 0.1 0-0.2 CMP Stat 12/23/2008 [facility] Sodium 137 mmol/L 135-145 [phone] Potassium 3.4 mmol/L Low 3.5-5.0 Chloride 105 [...] (Sgot) 16 U/L 12-42 Laboratory test 12/23/2008 [facility] BHCG Quantitative 7404.0 High 0-5 31 finding [phone] MIU/ML Urinalysis 12/20/2008 [facility] Ua Color YELLOW W/Microscopic [phone] Appearance-Urine CLEAR Specific [place]-Ur 1.009 Low 1.010-1.030 Esterase-Urine NEGATIVE Negative Nitrite NEGATIVE Negative Hzbcixbtvwey-Uq-ABW NEGATIVE Negative Protein-Urine NEGATIVE Negative PH-Urine 7.0 5-9 Blood-Urine NEGATIVE Negative Ketones-Urine NEGATIVE Negative Bilirubin-Ur NEGATIVE Negative Glucose-Urine NEGATIVE Negative RBC-Urine NONE SEEN 0-2 Epith Cells-Ur FEW CBC With 12/20/2008 [facility] White Blood 6.1 CUMM 4.8-10.8 Electronic Diff [phone] Count Stat Red Cell Count 4.34 CUMM [...] Basophils 0 0-0.2 Type And Screen 12/20/2008 [facility] Patient Blood A POSITIVE [phone] Type Antibody Screen NEGATIVE Basic Metabolic 12/20/2008 [facility] Sodium 135 mmol /L 135-145 Panel Stat [phone] Potassium 3.7 mmol/L 3.5-5.0 Chloride 104 mmol/L 101-111 Co2 (Carbon Dioxide) 27.0 mmol/L 22-32 Anion Gap 4.0 mmol/L 2-11 32 Glucose 66 mg/dL Low 70-100 33 BUN 18 mg/dL 6-24 Creatinine 0.63 mg/dL 0.50-1.40 One Over Creatinine 1.50 BUN/Creatinine Ratio 28.6 High 8-20 Calcium 9.3 mg/dL 8.1-9.9 34 Laboratory test 12/20/2008 [facility] 3312.0 High 0-5 35 finding [phone] Quantitative MIU/ML CBC With 11/11/2008 [facility] White Blood 9.4 CUMM 4.8-10. Electronic Diff [phone] Count 8 Stat Red Cell Count 4.74 [...] Abs Basophils 0 0-0.2 HCG Qualitative 11/11/2008 [facility] Serum Qual NEGATIVE Negative 36 Stat [phone] HCG CMP Stat 11/11/2008 [facility] Sodium 138 mmol/L 135-145 [phone] Potassium 4.3 mmol/L 3.5-5.0 Chloride 107 mmol/L [...] (Sgot) 18 U/L 12-42 Laboratory test 11/11/2008 [facility] Acetaminophen < 10 Low 10-30 40 finding [phone] Stat g/mL Alcohol Stat < 10.0 mg/dL None Detected 41 Salicylate Stat < 4.0 mg/dL Less Than 30 42 Thyroid Panel 11/11/2008 [facility] Free Thyroxine 0.91 NG/ML 0.61-1.24 43 [phone] Thyroxine 6.6 g/dL 5-12 TSH 0.80 MIU/ML 0.34-5.60 DS3 11/11/2008 [facility] Amphetamines Urine NONE DETECTED None Detect [phone] Screen Barbituates Urine Screen NONE DETECTED None Detect Benzodiazepine Ur Screen NONE DETECTED None Detect Cannabinoid Urine Screen NONE DETECTED None Detect Cocaine Metabolites Urine NONE DETECTED None Detect Opiates Urine Screen NONE DETECTED None Detect PCP Urine Screen NONE DETECTED None Detect 44 CMP Stat 11/11/2008 [facility] Sodium 136 mmol/L 135-145 [phone] Potassium 3.6 mmol/L 3.5-5.0 Chloride 105 mmol/L [...] (Sgot) 23 U/L 12-42 CBC With 11/11/2008 [facility] White Blood 6.6 CUMM 4.8-10.8 Electronic Diff [phone] Count Stat Red Cell Count 4.64 CUMM [...] Abs Basophils 0 0-0.2 HCG Qualitative 11/11/2008 [facility] Serum Qual NEGATIVE Negative 48 Stat [phone] HCG CBC With 07/15/2007 [facility] White Blood 7.6 CUMM 4.8-10.8 Electronic Diff [phone] Count Stat Abs Basophils 0.1 0-0.2 Abs [...] WDTH 13 % 10.5-15 Urinalysis Stat 07/15/2007 [facility] Ua Color YELLOW [phone] Appearance-Urine HAZY Bilirubin-Ur NEGATIVE Negative Blood-Urine NEGATIVE Negative Esterase-Urine NEGATIVE Negative Glucose-Urine NEGATIVE Negative Ketones-Urine NEGATIVE Negative Nitrite NEGATIVE Negative PH-Urine 7.0 5-9 Protein-Urine NEGATIVE Negative Vmrkevbaklhv-Fg-KTM NEGATIVE Negative Specific [place]-Ur 1.017 1.010-1.030 DS3 07/15/2007 [facility] Amphetamines Urine NONE DETECTED None Detect [phone] Screen Benzodiazepine Ur Screen NONE DETECTED None Detect Cocaine Metabolites Urine NONE DETECTED None Detect Opiates Urine Screen NONE DETECTED None Detect PCP Urine Screen NONE DETECTED None Detect 49 Cannabinoid Urine Screen NONE DETECTED None Detect Barbituates Urine Screen NONE DETECTED None Detect Laboratory test 07/15/2007 [facility] Acetaminophen < 10 g/mL Low 10-30 50 finding [phone] Alcohol < 10.0 mg/dL None Detected 51 Comp Metabolic 07/15/2007 [facility] One Over Creatinine 1.11 Panel [phone] Anion Gap 5.0 mmol/L 2-11 52 Albumin/Globulin [...] Creatinine 0.9 mg/dL 0.5-1.4 Laboratory test 07/15/2007 [facility] Salicylate < 4.0 mg/dL Less Than 53 finding [phone] TSH 1.84 MIU/ML 0.34-5.60 HCG Qualitative 07/15/2007 [facility] Serum Qual HCG NEGATIVE Negative 54 Stat [phone] Urine DIP 11/01/2004 In House Lab Leukocytes NEG Neg (607)- - Urine Nitrites NEG Neg Urine pH 5 5-6 Total Protein, Urine NEG Neg Urine Glucose NORM Norm Urine Ketones 3+ High Neg Urobolinogen NORM Norm Urine Bilirubin NEG Neg Urine Blood NEG Neg Laboratory test finding 02/21/2003 In House Lab Hemoglobin 14.5 (607)- - 1 [id number] Normal Range 180 to 914 Indeterminate Range 145 to 180 Deficient Range <145 3 SEE RESULT BELOW Name: KRISHNA HARVEY Vero : [address]: Susana Villar NP Acct: [id number] Unit: [id number] AGE: 27 Location: [facility] Re03/18/18 SEX: F Status: REG REF SPEC: [id number] DIOR: 03/18/18-[address] [facility] [address]: Susana Villar BLOCK MECHANIC REQ: [id number] RECD: 03/18/188 STATUS: SOUT _ ORDERED: TP IMAGE ANALYS, HPV 16/18 GENE COMMENTS: [id number] Negative for Intraepithelial lesion or Malignancy A. [...] was evaluated with the assistance of the 3TEN8p Test Imaging System. Due to cytologic findings at the managing supervisor microscope, comprehensive manual rescreening by a Pipe Racker may be required. The Pap Smear is [...] years. END OF REPORT DEPARTMENT OF PATHOLOGY, [address] [place] [address] Maksim Jovel M.D. Director [facility] # [id number] 4 SEE RESULT BELOW Name: KRISHNA HARVEY : [address]: Elio Mina NP Acct: [id number] Unit: [id number] AGE: 26 Location: [facility] Re09/11/17 SEX: F Status: REG REF SPEC: [id number] DIOR: 09/11/17-[address]: Elio Mina NP REQ: [id number] RECD: 09/11/17 STATUS: COMP _ SOURCE: VAGINAL SPDESC: ORDERED: CherYeast DNA COMMENTS: [id number] Procedure Result Reported Site Gardnerella/Yeast: Vaginal DNA [...] or failure. * ML - MAIN LAB ([facility]) . END OF REPORT * ML=Testing performed at Main Lab DEPARTMENT OF PATHOLOGY, [address] [place] [address] Maksim Jovel M.D. Director [facility] # [id number] GC/Chlamydia Source?: Endocervical Trichomonas Source: Endocervical 6 [...] 20 mIU/mL 9 SEE RESULT BELOW Name: KRISHNA HARVEY : [address]: Elio Mina NP Acct: [id number] Unit: [id number] AGE: 25 Location: [facility] Re02/14/16 SEX: F Status: REG REF SPEC: [id number] DIOR: 02/14/16-[address]: Elio Mina NP REQ: [id number] RECD: 02/14/16944 STATUS: SOUT _ ORDERED: IMAGE ANALYSIS COMMENTS: [id number] FINAL DIAGNOSIS Negative for Intraepithelial lesion or Malignancy A. Ectocervical/Endocervical Specimen Adequacy: Satisfactory of evaluation Transformation zone component identified Patient Information: HPV: Thin Layer Pap Test w/reflex to high risk HPV RNA testing when ASCUS Actual Specimen Date: 02/14/16 LMP If Unknown: pt unsure very irregular Previous Abnormal Pap Smears?:Y If Yes, enter Diagnosis: unknown, had follow up Colposcopy. Signed (signature on file) Torey IqbalZAY (ASCP) 02/14 1352 This Pap test was evaluated with the assistance of the O-CODESPrep Test Imaging System. Due to cytologic findings at the managing supervisor microscope, comprehensive manual rescreening by a Pipe Racker may be required. The Pap Smear is [...] performed at Main Lab DEPARTMENT OF PATHOLOGY, [address] [place] [address] Maksim Jovel M.D. Director [facility] # [id number] 10 Desirable <150 Borderline high 150-199 High 200-499 Very High >500 11 Desirable <200 Borderline high 200-239 High >239 12 Low <40 Desirable: 40-60 High: >60 13 Desirable: <100 mg/dL Near Optimal: 100-129 mg/dL Borderline High: 130-159 mg/dL High: 160-189 mg/dL Very High: >189 mg/dL 14 [facility] [id number] [facility] [place] [id number] Truck Washer: KOTA LOPEZ Due to the increased sensitivity of molecular testing, reflex cultures are no longer performed. 17 ---- RUN DATE: 02/14/09 [facility] NMI LIVE PAGE 1 RUN TIME: 1631 Specimen Inquiry RUN USER: INTERFACE -- Name: KRISHNA HARVEY Status: REG REF Re02/13/09 Age/Sex: 18/F Unit#: [id number] Location: [facility] : [birth year] -- Specimen: [id number] SOUT Spec Date: 02/13/[address]: Sadie neely MD Spec Type: CYTOLOGY [...] was evaluated with the assistance of the ThinPrep Pap Test Imaging System. The Pap Smear [...] on your risk status, a Pap smear vickie uld be obtained and evaluated every one to three years. Final Interpretation electronically signed by: Harris IRELAND([facility]) 02/14/09 163 1 -- -- DEPARTMENT OF PATHOLOGY, [address] [place] [address] [facility] Permit #[id number] Maksim Jovel M.D. Director Eliezer Simeon M.D. Gift Shop Assistant Dir elder -- 18 Anemia 19 FINAL: [...] change was based on recommendations from the [place] [employer]. 23 Please note change in [...] change was based on recommendations from the [place] [employer]. 30 Please note change in [...] change was based on recommendations from the [place] [employer]. 34 Please note change in [...] change was based on recommendations from the [place] [employer]. 39 Please note change in [...] change was based on recommendations from the [place] [employer]. 47 Please note change in [...] . Procedures Date Code Description Status 09/11/2017 59825 Therapeutic,Prophylactic,Or Diagnostic Inj,SC/Im Specify Completed Drug Encounters Type Date Location Provider Dx Diagnosis Office Visit 06/01/2018 9:45a Main Office Emilee Schwartz NP R51 Headache F43.23 Adjustment disorder with mixed anxiety and depressed mood Z23 Encounter for immunization Office Visit 04/26/2018 3:00p Main Office Susana Villar F43.23 Adjustment [employer] disorder with mixed anxiety and depressed mood Office Visit 04/12/2018 11:15a Main Office Susana Villar F43.23 Adjustment [employer] disorder with mixed anxiety and depressed mood Office Visit 03/18/2018 10:00a Main Office Susana Villar Z00.00 Encntr for general [employer] adult medical exam w/o abnormal findings Z12.4 Encounter for screening for malignant neoplasm of cervix F43.23 Adjustment disorder with mixed anxiety and depressed mood I83.93 Asymptomatic varicose veins of bilateral lower extremities Office Visit 11/30/2017 4:30p Main Office Susana J06.9 Acute upper Shortle, BLOCK MECH[employer]IC respiratory infection, unspecified Office Visit 11/16/2017 11:15a Main Office Elio Son J01.90 Acute sinusitis, Storm, BARBACK-C unspecified Office Visit 09/11/2017 2:45p Main Office Elio Son N76.0 Acute vaginitis Storm, BARBACK-C R10.30 Lower abdominal pain, unspecified M54.5 Low back pain Office Visit 09/11/2016 5:00p Main Office Leticia Quan02.9 Acute pharyngitis, unspecified J20.9 Acute bronchitis, unspecified Office Visit 06/23/2016 3:45p Main Office Elio Son M54.17 Radiculopathy , Storm, BARBACK-C lumbosacral region Z23 Encounter for immunization Office Visit 05/19/2016 2:30p Main Office Elio Son M54.17 Radiculopathy , Storm, BARBACK-C lumbosacral region Z23 Encounter for immunization Office Visit 05/08/2016 10:45a Main Office Elio Son M54.17 Radiculopathy , Storm, BARBACK-C lumbosacral region R51 Headache Office Visit 02/14/2016 2:15p Main Office Elio Mina, Z00.00 Encntr for general BARBACK-C adult medical exam w/o abnormal findings J01.90 Acute sinusitis, unspecified Office Visit 05/23/2014 9:00a Main Office Dolores Keane, 648.90 Other BARBACK-C Conditions Episode Of Care Unspec Or N/A Office Visit 04/06/2012 3:30p Main Office Santos Parada M.D. 648.90 Other Conditions Episode Of Care Unspec Or N/A Office Visit 03/24/2012 4:00p Main Office Santos Parada M.D. 648.90 Other Conditions Episode Of Care Unspec Or N/A Office Visit 10/13/2011 11:00a Main Office Elio Mina, 465.9 URI Upper BARBACK-C Respiratory Infections Acute Unspec Sites V25.09 Contraceptive Management Other Office Visit 02/07/2009 2:15p Main Office Santos Parada 634.82 Spontaneous M.D. W/ Unspec Complication Complete Office Visit 02/02/2009 2:30p Main Office Elio Son 634.82 Spontaneous Storm, BARBACK-C W/ Unspec Complication Complete Office Visit 01/17/2009 11:45a Main Office Santos Parada 784.0 Headache M.D. 311 Depressive Disorder Not Elsewhere Spec Office Visit 12/27/2008 11:15a Main Office Santos Parada M.D. 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 311 Depressive Disorder Not Elsewhere Spec Office Visit 11/09/2007 3:45p Main Office Santos Parada M.D. 311 [...] 3:30p Main Office Dolores Zhu, V20.2 Routine Or M.D. Child Health Check V70.0 Examination General Medical Routine AT Health Care Facility 311 Depressive Disorder Not Elsewhere Spec Office Visit 03/31/2002 3:30p Main Office Kyra Whitley 372.30 Conjuctivitis Unspec Madeleine RaiDSuzie Office Visit 01/11/2002 4:00p Main Office Dolores Zhu, 314.01 Attention Deficit M.D. Disorder W/ Hyperactivity 311 Depressive Disorder Not Elsewhere Spec Office Visit 11/29/2001 4:00p Main Office Dolores Zhu, 314.01 Attention Deficit M.D. Disorder W/ Hyperactivity Plan of Treatment Future Appointment(s):09/17/2018 10:15 am - RYAN Patrick-C at Main [facility]/27/2018 - RYAN Patrick-CM79.10 Myalgia, unspecified siteNew Medication:Ergocalciferol 91292 Unit - one by mouth twice each week for 4 weeksComments:labs reviewed, will correct Vit D deficiency, follow up after this is completedFollow up:1 afkcyU94.8 Deficiency of other specified B group vitaminsNew Medication:Vitamin B-12 2500 mcg - 1 by mouth every day for deficiencyComments:start daily B12 supplement
[2018-09-28 09:51] VITALS: BP 103/61
--- NOTE | 2018-09-28 11:05 | UC ---
Upper Extremity HPI - HPI Summary HPI Summary: 27-year-old female presents with complaints of left wrist pain. States pain began after work last evening. Pain became more severe during the night and woke her from sleep around 2 AM. Describes pain as a constant sharp ache to the ulnar aspect of her left wrist that occasionally radiates up the ulnar arm. States she took some ibuprofen around 5:00 in the morning with no significant improvement. Patient works as a [employer]. Denies specific injury, erythema, bruising, numbness, or tingling. - History of Current Complaint Chief Complaint: UCUpperExtremity Stated Complaint: L ARM COMPLAINT Hx Obtained From: Patient Hx Last Menstrual Period: 09/19/18 Pain Intensity: 8 - Allergies/Home Medications Allergies/Adverse Reactions: Allergies Allergy/AdvReac Type Severity Reaction Status Date / Time bee venom protein (honey bee) Allergy Hives Verified 09/28/18 09:52 coconut Allergy Blisters Verified 09/28/18 09:52 Penicillins Allergy Swelling Verified 09/28/18 09:52 Of Face,Lips,& Throat PMH/Surg Hx/FS Hx/Imm Hx Previously Healthy: Yes - Denies significant PMH - Surgical History Surgical History: Yes Surgery Procedure, Year, and Place: D&C 2008 - Family History Known Family History: Positive: None, Unknown - Unknown in biological father, Cardiac Disease - positive in mother, Diabetes - positive in mother - Social History Occupation: Employed Full-time Lives: With Family Alcohol Use: Rare Substance Use Type: None Smoking Status (MU): Former Smoker Type: Cigarettes Amount Used/How Often: 1 ppd Review of Systems All Other Systems Reviewed And Are Negative: Yes Constitutional: Negative: Fever, Chills Skin: Negative: Rash, Bruising Respiratory: Positive: Negative Cardiovascular: Positive: Negative Gastrointestinal: Positive: Negative Genitourinary: Positive: Negative Motor: Negative: Weakness Neurovascular: Negative: Decreased Sensation Musculoskeletal: Positive: Other: - See HPI Neurological: Negative: Paresthesia, Numbness Is Patient Immunocompromised?: No Physical Exam - Summary Physical Exam Summary: GENERAL APPEARANCE: Well developed, well nourished, alert and cooperative, and appears to be in no acute distress. CARDIAC: Normal S1 and S2. No S3, S4 or murmurs. Rhythm is regular. There is no peripheral edema, cyanosis or pallor. Extremities are warm and well perfused. Capillary refill is less than 2 seconds. LUNGS: Clear to auscultation without rales, rhonchi, wheezing or diminished breath sounds. ABDOMEN: Positive bowel sounds. Soft, nondistended, nontender. No guarding or rebound. No masses or hepatosplenomegally. MUSKULOSKELETAL: Normal muscular development. Normal gait. EXTREMITIES: Tenderness with palpation over the ulnar extensor tendon without erythema, ecchymosis, or gross deformity. Flexion, extension, and radial deviation limited by pain. Sensation and circulation intact distally. NEUROLOGICAL: Strength and sensation symmetric and intact throughout. SKIN: Skin normal color, texture and turgor with no lesions or eruptions. Triage Information Reviewed: Yes Vital Signs: Initial Vital Signs Temp 98.5 F 09/28/18 09:47 Pulse 61 09/28/18 09:47 Resp 18 09/28/18 09:47 BP 103/61 09/28/18 09:47 Pulse Ox 100 09/28/18 09:47 Vital Signs Reviewed: Yes Diagnostics - Radiology No standard instances Radiology Interpretation Completed By: ED Physician - Negative for fracture or dislocation., Radiologist Summary of Radiographic Findings: Patient Name: KRISHNA HARVEY Medical Record#: [id number]. Ordering Physician: Malcom Orellana NP Acct.#: [id number]. : 1990 Age: 27 Sex: F Location: [facility]. Exam Date: 08/04 ADM Status: REG ER. Order Information: WRIST LEFT 3+ VWS. Accession Number: [id number]. CPT: 05241. HISTORY: pain. COMPARISONS: None. VIEWS: 3 , Frontal, lateral, and oblique views of the left wrist. FINDINGS: BONE DENSITY: Normal. BONES: There is no displaced fracture. JOINTS: There is no arthropathy. ALIGNMENT: There is no dislocation. SOFT TISSUES: Unremarkable. OTHER FINDINGS: None. IMPRESSION: NO ACUTE OSSEOUS INJURY. Upper Extremity Course/Dx - Course Course Of Treatment: 27-year-old female presents with complaints of left wrist pain. States pain began after work last evening. Pain became more severe during the night and woke her from sleep around 2 AM. Describes pain as a constant sharp ache to the ulnar aspect of her left wrist that occasionally radiates up the ulnar arm. States she took some ibuprofen around 5:00 in the morning with no significant improvement. Patient works as a [employer]. Denies specific injury, erythema, bruising, numbness, or tingling. Afebrile. Vital signs stable. Exam reveals an adult female in no acute distress with tenderness with palpation over the ulnar extensor tendon without erythema, ecchymosis, or gross deformity. Flexion, extension, and radial deviation limited by pain. Sensation and circulation intact distally. Wrist x-ray showed no acute fracture or dislocation. She was placed in a cockup wrist splint by the RN. Circulation and sensation intact pre-and post-application. Recommending conservative treatment for a left wrist tendinitis with NSAIDs and RICE. She is to follow-up with her PCP in 7 days if symptoms do not improve. Anticipatory guidance and warning symptoms were reviewed with the patient. Verbalizes understanding and agrees with plan of care. - Differential Dx/Diagnosis Differential Diagnosis/HQI/PQRI: Contusion, Fracture (Closed), Hematoma, Strain , Sprain Provider Diagnosis: Left wrist tendonitis Discharge - Sign-Out/Discharge Documenting (check all that apply): Patient Departure All imaging exams completed and their final reports reviewed: Yes - Discharge Plan Condition: Stable Disposition: HOME Patient Education Materials: Tenosynovitis (ED) Forms: *Work Release Referrals: Elio Mina NP [Primary Care Provider] - 7 Days (If no improvement in symptoms.) Additional Instructions: The x-ray of your wrist performed in the clinic today showed no evidence of fracture or dislocation. Based on your symptoms and exam I suspect that you have tendinitis of the left wrist. Rest the arm as much as possible. Wear the splint that was applied in the clinic for support until you are pain free. You may remove to shower but should wear at all other times. Apply ice to the effected area for 15-20 minutes at least 4 times a day for the next few days. Keep the arm elevated at the level of the heart to help reduce any inflammation. Take ibuprofen 600 mg every 8 hours with food for the next 5-7 days then may take as needed for pain. Follow-up with your primary care provider in 7 days if symptoms do not improve. Seek immediate medical attention in the emergency room if you had severe pain that is not managed with pain medication, your hand or fingers become a pale or bluish color, you develop any numbness or tingling in the hand or fingers, or have any worsening of symptoms. - Billing Disposition and Condition Condition: STABLE Disposition: Home
== END 2018-09-28 11:50 | disposition home or self-care (01) ==
LOC: UCEAST 09:24
DX: M77.9 Enthesopathy, unspecified (principal); Z87.891 Personal history of nicotine dependence; Z88.0 Allergy status to penicillin; Z91.018 Allergy to other foods; Z91.030 Bee allergy status
CPT/HCPCS: 99212; G0463

== ENCOUNTER → 2019-08-01 13:01 | Emergency (ER) | payer OTHER ==
[2019-08-01 13:05] VITALS: BP 97/65
--- OUTSIDE RECORDS SUMMARY | 2019-08-02 08:47 | XMS REPORT | Summary of Care ---
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 Diagnoses Encounter for test, result unknown Amira Marie, [employer] [address] [place] [address] Scheduling Instructions Patient will call us with provider name near her [facility] Reason for Visit Reason Comments New Patient Test needs blood test done for work Encounter Details Date Type Department Care Team Description 06/27/2019 Office Visit [place] [facility] Amira Marie, Encounter for test, result unknown (Primary Dx); Medicine [facility] Leg cramping; [address] [facility] Dizziness and giddiness; [address] Anemia during [phone] [facility] [phone] Allergies Active Allergy Reactions Severity Noted Date Comments Bee Anaphylaxis 01/18/2017 Coconut Flavor Hives 04/07/2019 Penicillins Anaphylaxis 01/18/2017 documented as of this encounter (statuses as of 06/27/2019) Medications Medication Sig Dispensed Refills Start Date End Date Status Take 1 Tab by 0 Active MV-Min-Fe mouth DAILY. Fum-FA-DHA ( 1 PO) Desogestrel-Ethin Take 1 Tab by 0 06/27/2019 Discontinued yl Estradiol mouth. (ENSKYCE) 0.15-30 MG-MCG Oral Tab doxycycline Take 100 mg by 20 Tab 0 04/07/2019 06/27/2019 Discontinued (VIBRAMYCIN) 100 mouth TWICE MG Oral Tab DAILY. albuterol HFA Take 2 Puffs by 1 Inhaler 2 04/07/2019 06/27/2019 Discontinued (VENTOLIN) 108 inhalation EVERY (90 Base) MCG/ACT FOUR HOURS Inhalation Aero NEEDED Soln (coughing). documented as of this encounter (statuses as of 06/27/2019) Active Problems Comments Yes No known active problemsdocumented as of this encounter (statuses as of 2018) Social History Tobacco Use Types Packs/Day Years Used Date Never Smoker 0 Smokeless Tobacco: Never Used Alcohol Use Drinks/Week oz/Week Comments Not Currently Comments Yes Sex Assigned at Date Recorded Not on file Job Start Date Occupation Industry Not on file Not on file Not on file Travel History Travel Start Travel End No recent travel history available. documented as of this encounter Last Filed Vital Signs Vital Sign Reading Time Taken Comments Blood Pressure 102/62 06/27/2019 8:11 AM EST Pulse 80 06/27/2019 8:11 AM EST Temperature 36.7 06/27/2019 8:11 AM EST C (98 F) Respiratory Rate - - Oxygen Saturation 98% 06/27/2019 8:11 AM EST Inhaled Oxygen Concentration - - Weight 53.5 kg (118 lb) 06/27/2019 8:11 AM EST Height 160 cm (5' 3") 06/27/2019 8:11 AM EST Body Mass Index 20.9 06/27/2019 8:11 AM EST documented in this encounter Patient Instructions Patient InstructionsAmira Marie NP - 06/27/2019 8:00 AM EST1. Please sign up for [employer] and download the [employer] as this is the best way to communicate with us. You can request medication refills, make your own appointment to be seen, receive your lab results, and send a message to me or any provider if needed. There is a code on your After Visit Summary. Follow the instructions to download correctly. 2. Please get blood work completed. Your urine test came back positive. 3. MARKETING REPRESENTATIVE referral has been ordered. 4. Congrats!!! I am so happy for you and your family! I have written a letter for work. 5. Follow up as needed.Electronically signed by Amira Marie NP at 2018 8:36 AM EST documented in this encounter Progress Notes Amira Marie NP - 06/27/2019 8:00 AM EST PATIENT: Tana Garcia : 1990 DATE OF SERVICE: 06/27/2019 CHIEF COMPLAINT: Chief Complaint Patient presents with New Patient Test needs blood test done for work Subjective HISTORY OF PRESENT ILLNESS: Tana Garcia is a 28-y.o. female. HPI Tana Garcia presents to the office to establish care. Her chief complaint is three positive home tests and would like to confirm . 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 She has a 4 and a 6-year-old, both pregnancies without complications. In 2008, she had a miscarriage that required a D&C. Her LMP 04/20/19. This is a planned . She complains of BLE cramping, sometimes waking her up in the middle of the night. She is wondering if herelectrolytes are abnormal. In addition, she has noticed dizziness for the last two weeks. She was diagnosed with anemia with one of her pregnancies. She denies substance abuse. She has been taking vitamins for the last 4 days. Past Medical History: Diagnosis Date Anxiety Head injury concussion Family History Adopted: Yes No current outpatient medications on file. No current facility-administered medications for this visit. Allergies Allergen Reactions Bee Anaphylaxis Coconut Flavor Hives Penicillins Anaphylaxis Social History Socioeconomic History Marital status: Spouse name: Not on file Number of children: Not on file Years of education: Not on file Highest education level: Not on file Occupational History Not on file Social Needs Financial resource strain: Not on file Food insecurity: Worry: Not on file Inability: Not on file Transportation needs: Medical: Not on file Non-medical: Not on file Tobacco Use Smoking status: Never Smoker Smokeless tobacco: Never Used Substance and Sexual Activity Alcohol use: Not Currently Drug use: Not Currently Sexual activity: Yes Partners: Male Lifestyle Physical activity: Days per week: Not on file Minutes per session: Not on file Stress: Not on file Relationships Social connections: Talks on phone: Not on file Gets together: Not on file Attends holiness service: Not on file Active member of club or organization: Not on file Attends meetings of clubs or organizations: Not on file Relationship status: Not on file Intimate partner violence: Fear of current or ex partner: Not on file Emotionally abused: Not on file Physically abused: Not on file Forced sexual activity: Not on file Other Topics Concern Not on file Social History Narrative Not on file REVIEW OF SYSTEMS: Review of Systems Constitutional: Negative for chills and fever. Cardiovascular: Negative for chest pain and palpitations. Gastrointestinal: Negative for abdominal pain. Bloated Genitourinary: Negative for dysuria, frequency and urgency. Breast tenderness; amenorrhea; denies spotting Neurological: Positive for dizziness. Psychiatric/Behavioral: Negative for substance abuse. Objective PHYSICAL EXAM: VITALS: BP 102/62 | Pulse 80 | Temp 98 F (36.7 C) | Ht 5' 3" (1.6 m ) | Wt 118 lb (53.5 kg) | LMP 04/20/2019 | SpO2 98% | BMI 20.90 kg/m Body mass index is 20.9 kg/m. Physical Exam Vitals signs reviewed. Constitutional: Appearance: Normal appearance. Cardiovascular: Rate and Rhythm: Normal rate and regular rhythm. Pulses: Normal pulses. Heart sounds: Normal heart sounds. Pulmonary: Effort: Pulmonary effort is normal. Breath sounds: Normal breath sounds. Abdominal: General: Abdomen is flat. Bowel sounds are normal. Palpations: Abdomen is soft. Neurological: General: No focal deficit present. Mental Status: She is alert. Mental status is at baseline. She is disoriented. Psychiatric: Mood and Affect: Mood normal. Behavior: Behavior normal. Thought Content: Thought content normal. Judgment: Judgment normal. ASSESSMENT AND PLAN ICD-9-CM ICD-10-CM 1. Encounter for test, result unknown V72.40 Z32.00 REFER TO OB / CLINIC OFFICE MANAGER HCG QUALITATIVE SERUM HCG, QUALITATIVE, URINE (AMB POCT) CANCELED: HCG QUALITATIVE URINE 2. Leg cramping 729.82 R25.2 BASIC METABOLIC PANEL 3. Dizziness and giddiness 780.4 R42 CBC NO DIFFERENTIAL 4. Anemia during 648.20 O99.019 CBC NO DIFFERENTIAL PLAN: Refer to MARKETING REPRESENTATIVE. Due to leg cramping and dizziness, BMP and CBC ordered. She was instructed to continue taking her vitamin daily. A work letter was provided. Patient Instructions 1. Please sign up for [employer] and download the [employer] as this is the best way to communicate with us. You can request medication refills, make your own appointment to be seen, receive your lab results, and send a message to me or any provider if needed. There is a code on your After Visit Summary. Follow the instructions to download correctly. 2. Please get blood work completed. Your urine test came back positive. 3. MARKETING REPRESENTATIVE referral has been ordered. 4. Congrats!!! I am so happy for you and your family! I have written a letter for work. 5. Follow up as needed. I reviewed the patient's urine test. I have reviewed previous medical history, immunizations, prescriptions, and allergies. She was instructed on healthy diet and exercise. Anticipatory guidance given. Patient instructed to follow up as needed. and for their regular health maintenance including cancer screening, otherwise to call for any acute changes. Patient was reminded of the side effects of prescriptions that often affect but not limited to GI or ADVISORY INTERNSHIP, and to avoid operating any machinery if impaired. Patient was referred to the education sheets that were given formore information and to call us for any adverse symptoms that may also result from interactions withOTC medications as well as other prescribed medications. Patients concerns and questions were anwered to her satisfaction. You may be seen same day for acute problems or urgent care needs at regular business hours on Thu at 8:00 am - 5:00 pm or in walk-in clinic at 7 :00 am 7:00 pm on Thu and 8:00am to 12:00 noon on Thursday's and Thursday'. Please go the the nearest Emergency Department after hours for care. I encourage you to utilize [employer] @ [email or web address]. This is the easiest way to review your chart, request a prescription refill, correspond with me, and to request or make an appointment. Please do not hesitate to call with questions or concerns. Some of this note has been dictated using the "[employer]" Dictation System. All efforts have been made to edit and correct any mistakes as a result. Author: Amira Marie NP 06/27/2019 08:23 documented in this encounter Plan of Treatment Date Type Specialty Care Team Description 06/27/2019 Lab Internal Medicine Arrived Name Type Priority Associated Diagnoses Order Schedule HCG QUALITATIVE SERUM Lab Routine Encounter for Expected: 2018 test, result unknown (Approximate), Expires: 06/27/2020 CBC NO DIFFERENTIAL Lab Routine Dizziness and giddiness Expected: 06/27/2019 Anemia during (Approximate), Expires: 06/27/2020 BASIC METABOLIC PANEL Lab Routine Leg cramping Expected: 06/27/2019 (Approximate), Expires: 06/27/2020 Name Type Priority Associated Diagnoses Order Schedule REFER TO OB / CLINIC OFFICE MANAGER Referral Routine Encounter for Expected: 2018, test, result unknown Expires: 06/27/2020 Health Maintenance Due Date Last Done Comments INFLUENZA VACCINE (#1) 2019 PAP SMEAR 06/27/2019 Postponed from 1990 (Other) DEPRESSION SCREENING 04/07/2020 04/07/2019 HPV IMMUNIZATION SERIES Aged Out No longer eligible based on patient's age to complete this topic MENINGOCOCCAL VACCINE IMM Aged Out No longer eligible based on patient's age to complete this topic PNEUMOCOCCAL 0-64 YRS Aged Out No longer eligible based on patient's age to complete this topic documented as of this encounter Procedures Procedure Name Priority Date/Time Associated Diagnosis Comments HCG, QUALITATIVE, Routine 06/27/2019 8:35 AM Encounter for Results for this URINE (AMB POCT) EST test, procedure are in result unknown the results section. documented in this encounter Results HCG, QUALITATIVE, URINE (AMB POCT) (06/27/2019 8:35 AM EST) HCG QUAL URINE (POCT) Positive (A) Negative [facility] PO[facility] Control Line Present Present [facility] PO[facility] Lot Number [id number] [facility] PO[facility] Expiration Date 11/13/20 [facility] PO[facility] Specimen Performing Organization Address City/State/Zipcode Phone Number [facility] [address] [place] [address] documented in this encounter Visit Diagnoses Diagnosis Encounter for test, result unknown - Primary Leg cramping Dizziness and giddiness Anemia during Anemia, antepartum documented in this encounter Insurance Payer Benefit Plan / Subscriber ID Effective Dates Phone Address Type Group BCBS NATIONAL BCBS NATIONAL xxxxxxxxxxxx 2017-Present Blue Cross/Blue Shield Guarantor Name Account Type Relation to Date of Phone Billing Patient Address Tana Garcia Personal/Family 1990 [id number] ([address]) [address] [phone] [place], ([place]) [place] [address] documented as of this encounter
== END | disposition left against medical advice (07) ==
LOC: ED 13:01
DX: E86.0 Dehydration (principal); Z53.21 Procedure and treatment not carried out due to patient leaving prior to being seen by health care provider

== ENCOUNTER 2020-02-25 05:31 | Inpatient (IN) ==
[2020-02-25] MEDS ORDERED: Lactated Ringers 1000 ml BAG 1,000 ML IV ONE (05:45)
[2020-02-25] MEDS ORDERED: Lactated Ringers 1000 ml BAG 1,000 ML IV SCH ×2 (06:00→07:00)
[2020-02-25] MEDS ORDERED: Oxytocin in LR 20 UNITS/1,000 ML BAG IVPB ONE (06:13)
[2020-02-25 06:25] LABS: ABS Basophils 0.1 10^3/ul (0-0.2); ABS Lymphocytes 2.2 10^3/ul (1.0-4.8); ABS Monocytes 0.6 10^3/ul (0-0.8); Eosinophil % 0.6 %; Hematocrit 35 % (35-47); Hemoglobin 11.7 g/dL (12.0-16.0); Mean Corpuscular HGB Conc 33 g/dL (31-36); Mean Corpuscular Hemoglobin 27 pg (27-31); Mean Corpuscular Volume 82 fL (80-97); Mean Platelet Volume 10.1 fL (7.4-10.4); Nucleated Red Blood Cells % 0.2; Platelet Count 304 10^3/uL (150-450); Red Cell Distribution Width 14 % (10-15); White Blood Count 7.2 10^3/uL (3.5-10.8)
[2020-02-25] MEDS ORDERED: Witch Hazel PAD JAR TOPICAL PRN (06:27)
[2020-02-25] MEDS ORDERED: Oxytocin in LR 20 UNITS/1,000 ML BAG IVPB SCH (07:00)
[2020-02-25] MEDS: Dibucaine 1% OINT 28.35 GM TUBE PR PRN (09:25)
[2020-02-25 12:51] LABS: Urine Benzodiazepine Screen None Detected (None Detect); Urine Opiates Screen None Detected (None Detect)
[2020-02-26 07:46] VITALS: BP 104/69
[2020-02-26 08:20] LABS: ABS Basophils 0.1 10^3/ul (0-0.2); ABS Eosinophils 0.1 10^3/ul (0-0.6); ABS Lymphocytes 2.4 10^3/ul (1.0-4.8); ABS Monocytes 0.5 10^3/ul (0-0.8); Eosinophil % 0.9 %; Hematocrit 28 % (35-47); Hemoglobin 9.7 g/dL (12.0-16.0); Lymphocyte % 27.9 %; Mean Corpuscular HGB Conc 34 g/dL (31-36); Mean Corpuscular Hemoglobin 28 pg (27-31); Mean Corpuscular Volume 82 fL (80-97); Mean Platelet Volume 9.9 fL (7.4-10.4); Platelet Count 221 10^3/uL (150-450); Red Blood Count 3.47 10^6 /uL (3.70-4.87); Red Cell Distribution Width 14 % (10-15); White Blood Count 8.5 10^3/uL (3.5-10.8)
[2020-02-26] MEDS: Dibucaine 1% OINT 28.35 GM TUBE PR PRN (12:45)
== END 2020-02-26 12:55 | disposition home or self-care (01) | DRG 560 ==
LOC: MCHOBOUT 05:31 → MCHOB 05:32
PROVIDERS: ADMIT Obstetrics & Gynecology; ATTEND Obstetrics & Gynecology